=== PATIENT | female | born 1950 | race Caucasian/White ===

== ENCOUNTER 2017-12-31 11:14 | Inpatient (IN) ==
--- NOTE | 2017-12-31 11:40 | Emergency Department Report ---
Medical Clearance HPI - General Chief complaint: Medical Clearance Stated complaint: Eval Time Seen by Provider: 12/31/17 11:40 Allergies/Adverse reactions: Allergies Allergy/AdvReac Type Severity Reaction Status Date / Time No Known Allergies Allergy Verified 12/31/17 11:39 PFS Patient Stated Medical History Diabetes Mellitus Type 2 Yes Depression Yes - Social History Smoking status: Current every day smoker
--- OUTSIDE RECORDS SUMMARY | 2017-12-31 12:27 | External Medical Summary | Continuity of Care Document ---
:1950 Author Organization [facility] Care Team Providers Name Role Phone [facility] Admission Diagnosis Code Admission Diagnosis Date [id number] Acute upper respiratory infection Social History Element Code Description Smoking Start Date End Date Description Status Code System Smoking Status [id number] Current some day SNOMED-CT smoker Problems Code Code System Problem Name Start Date End Date Status CAT BITE-LEFT 03/05/2016 Active INDEX FINGER Medications RxNorm Medication Dose Route Instructions Indications Start End Status Date Date Calcium with Active Vit. D ASA 81 mg Active Fish Oil Daily Active Ginko Biloba Active Lopressor 50 mg Daily Active Lotrel /20 Daily Active Metformin 500 mg Daily Active MVI Daily Active [id number] Simvastatin 80 oral orally every Active 80 MG Oral milligram day Tablet Tricor 54 mg 1/2 QOD Active tab Simvastin 80 mg QOD No Longer Active Allergies No Known Allergies Results Laboratory Results Order: CBC With Automated DifferentialLegend: D=Delta, H=High, L=Low, HH=Critical High, LL=Critical Low, AA=Critical Alpha-Numeric, C=Corrected, A=Abnormal LOINC Test Result Flag Range Units Date 90-2 6.7 4.5-11.0 10^3/mm3 09/24/2017 1WBC # Bld 09:40 Auto 85872-9 4.04 4.00-5.20 10^6/mm3 09/24/2017 1Retics # 09:40 Auto 29856-6 12.7 12.0-16.0 g/dl 09/24/2017 1Hgb 09:40 BldV-mCnc 4544-3 37.8 36.0-46.0 % 09/24/2017 1Hct VFr Bld 09:40 Auto 787-2 93.6 82.0-100.0 10^6/mm3 09/24/2017 1MCV RBC Auto 09:40 785-6 31.4 27.0-34.0 pg 09/24/2017 1MCH RBC Qn 09:40 Auto 786-4 33.6 32.0-36.0 g/dl 09/24/2017 1MCHC RBC 09:40 Auto-mCnc 788-0 13.6 11.7-15.0 % 09/24/2017 1RDW RBC 09:40 Auto-Rto 777-3 317 150-450 10^3/mm3 09/24/2017 1Platelet # 09:40 Bld Auto 10514-2 9.7 7.4-10.4 09/24/2017 1PMV Bld 09:40 54533-4 70.9 40.0-74.0 % 09/24/2017 1Neutrophils 09:40 # CSF 20.6 14.0-46.0 % 09/24/2017 1LYMPH% 09:40 59885-7 7.1 4.0-13.0 % 09/24/2017 1CD43 Ag Tiss 09:40 Ql ImStn 711-2 0.6 0.0-4.0 % 09/24/2017 1Eosinophil # 09:40 Bld Auto 704-7 0.8 <=3.0 % 09/24/2017 1Basophils # 09:40 Bld Auto 751-8 4.7 1.8-7.8 09/24/2017 1Neutrophils 09:40 # Bld Auto 07352-6 1.4 0.7-4.5 09/24/2017 1Lymphocytes 09:40 # Bld 99983-2 0.5 0.1-1.0 09/24/2017 1CD43 Ag Tiss 09:40 Ql ImStn 711-2 0.04 <=4.00 09/24/2017 1Eosinophil # 09:40 Bld Auto 704-7 0.05 <=0.20 09/24/2017 1Basophils # 09:40 Bld Auto N 09/24/2017 1MANDIFF 09:40 84947-4 N 09/24/2017 1RBC Bld Auto 09:40 Performing Lab Footnotes:1[facility] - [id number] - [address] [facility] [place] [address] - [place] Order: Comprehensive Metabolic PanelLegend: D=Delta, H=High, L=Low, HH= Critical High, LL=Critical Low, AA=Critical Alpha-Numeric, C=Corrected, A= Abnormal LOINC Test Result Flag Range Units Date 5- 119 H 70-105 mg/dl 09/24/2017 1Glucose 09:40 [facility] 3094-0 14 7-25 mg/dl 09/24/2017 1BUN 09:40 [facility] 2160-0 1.1 0.6-1.3 mg/dl 09/24/2017 1Creat 09:40 [facility]-2 13 13-39 09/24/2017 1Creat/Urea 09:40 nit SerPl 2951-2 137 135-145 mmol/L 09/24/2017 1Sodium 09:40 [facility] 07476-8 4.1 3.5-5.1 mmol/L 09/24/2017 1Potassium 09:40 [facility] 2075-0 100 98-107 mmol/l 09/24/2017 1Chloride 09:40 [facility] 2028-9 25 21-31 mmol/l 09/24/2017 1CO2 09:40 [facility] 31323-8 16 9-16 mmol/L 09/24/2017 1Anion Gap 09:40 [facility] 2692-2 286 277-298 mOsm/kg 09/24/2017 1Osmolality 09:40 SerPl 91891-7 9.9 8.2-10.0 mg/dl 09/24/2017 1Calcium 09:40 [facility] 1742-6 43 7-52 IU/L 09/24/2017 1ALT 09:40 SerPl-cCnc 1920-8 53 H 13-39 IU/L 09/24/2017 1AST 09:40 SerPl-cCnc 1715-2 56 34-104 U/L 09/24/2017 1ACP 09:40 SerPl-cCnc 1975-2 0.7 0.3-1.0 mg/dl 09/24/2017 1Bilirub 09:40 SerPl-mCnc 2885-2 7.7 6.0-8.3 g/dL 09/24/2017 1Prot 09:40 SerPl-mCnc 1751-7 4.3 3.5-5.7 g/dl 09/24/2017 1Albumin 09:40 SerPl-mCnc 2336-6 3.4 H 2.3-3.2 g/dL 09/24/2017 1Globulin 09:40 Ser-mCnc 1759-0 1.3 1.2-2.0 09/24/2017 1Albumin/Flaca 09:40 b SerPl 49 L 60-116 GFRunits 09/24/2017 1GFR 09:40 Performing Lab Footnotes:[address] [place] [address] - [id number] - [address] [place] [address] [facility] [place] Radiology Results Order: CXR2VW Chest x-ray 2 viewsExam Completion Date:09/24/2017 10:02INDICATION: Acute upper respiratory infectionChest x-ray 2 views: Comparison: None The heart size isnormal. The pulmonary vasculature is not engorged. Thelungs are clear. There is no evidence of pleural effusion.IMPRESSION: No acute radiographic abnormality.Released By TERESA BRANNON, MDDate: 09/24/2017 10:45 Vital Signs No data in the system Plan of Care No data in the system Procedures No data in the system Encounters Date Code Diagnosis Status (ICD10) - J069 ACUTE UP RESPIRATORY INFECTION Active UNS Immunizations No data in the system Functional Status No data in the system Hospital Discharge Instructions No data in the system
--- OUTSIDE RECORDS SUMMARY | 2017-12-31 12:28 | External Medical Summary ---
:1950 Author Name ANGÉLICA RUST MD Address [address] Unavailable [place], [place] [id number] Care Team Providers Name Role Phone ANGÉLICA RUST MD Unavailable Unavailable SRINIVASAN MCGUIRE Unavailable Unavailable DR. Eleni GRANDA Unavailable Unavailable ALESSANDRO GALDAMEZ Unavailable Unavailable DR. TAJ AMARAL Unavailable Unavailable LIN RENEE APRN Unavailable Unavailable Allergies and Adverse Reactions No Known Allergies Chief Complaint Medications Encounters Provider(s) Location(s) Date ANGÉLICA RUST MD [facility] 12/11/2017 12:04 PM CARE Immunizations Vaccine Date Status PCV-13 PREVNAR 10/25/2015 Completed PPSV23 - Private 02/05/2017 Completed Medications Medication Strength Directions Start End Status Fill Date Date Instructions Vitamin D3 1,000 unit 10/25/2015 Active 1 Capsule 1 time per day calcium 600 mg 10/25/2015 Active 1 tab per day multivitamin 10/25/2015 Active 1 tab per day Fosamax 70 mg Active take 1 7 tablet by Oral route in am at least 30 min before food or drink 1 time per week ID [id number] Bevespi 9-4.8 mcg 09/01/20 Active Aerosphere 2 Puffs 2 17 times per day sample ProAir HFA 90 09/09/20 Active ug/actuatio inhale 2 17 n puff by Inhalation route every 4-6 hours PRN Tylenol Extra 500 mg Active Strength take 1 8 tablet by Oral route 1 time per day as needed *couple times a month* albuterol sulfate 2.5 mg /3 Active mL (0.083 inhale 3 8 %) milliliters by NEBULIZATION route every 4 hours PRN J44.9 & RO6.02 aspirin 81 mg Active 1 Tablet 8 by Oral route 1 time per day atorvastatin 40 mg Active take 1 8 tablet by Oral route 1 time per day ID [id number] donepezil 10 mg Active take 1 8 tablet (10 mg) by oral route once daily in the evening metFORMIN 500 mg 11/26/2017 Active Replaces other 1 Tablet 1 order for time per day Metformin that with evening was costly. meal Our e-scribe has a lot of choices for this med. -dp benazepril 40 mg 11/28/2017 Active This replaces 1 Tablet 1 amoldipine/irma time per day zapril combo fenofibrate 160 mg 11/28/2017 Active take 1 tablet (160 mg) by oral route once daily amLODIPine 10 mg 11/28/2017 Active This replaces 1 Tablet 1 amlodipine/irma time per day zapril combo metoprolol 50 mg 11/28/2017 Active Medication succinate take 1 updated from tablet by Oral ERx info from route 1 time pharmacy. per day escitalopram 20 mg Active note stoppping oxalate take 1 8 mirtazepine tablet by Oral route 1 time per day metformin 500 mg 10/25/2015 10/18/19 Completed 0.5 Tablet 17 by Oral route 1 time per day at bedtime Ultram 50 mg 07/01/20 02/18/20 Completed take 1 16 17 tablet by Oral route every 4-6 hours as needed PRN metoprolol 50 mg 01/11/20 Completed succinate take 1 6 17 tablet (50 mg) by oral route once daily amlodipine-benaze 10-20 mg 09/06/20 Completed pril take 1 16 7 capsule by Oral route 2 times per day triamcinolone 0.5 % Completed acetonide apply a 7 017 thin layer to the affected area(s) by topical route 2 times per day metFORMIN 500 mg 04/11/20 Completed 0.5 Tablet 7 17 by Oral route 1 time per day at bedtime - NOT TAKING mirtazapine 15 mg 11/17/19 Completed take 0.5-1 7 18 tablet by Oral route before bedtime 1 time per day ID [id number] amlodipine-benaze 10-20 mg 06/09/20 Completed Medication pril take 1 7 17 updated from capsule by Oral ERx info from route 2 times pharmacy. per day ID [id number] Medrol (Abelardo) 4 mg 09/01/20 11/06/19 Completed take as 17 18 directed by Oral route every 6 days donepezil 09/01/20 Completed by oral 17 017 route 10 mg once dailiy azithromycin 250 mg 09/01/20 11/12/19 Completed take 2 17 18 tablets by Oral route 1 time per day then 1 tablet (250 mg) once daily for 4 days metFORMIN 500 mg Completed take 1 8 8 tablets by Oral route 1 time per day with meals with evening meal metFORMIN 500 mg 11/26/2017 Completed 1 Tablet 1 8 time per day Metformin ER 500 mg. atorvastatin 40 mg 10/25/2015 03/20/20 Suspended take 1 17 tablet (40 mg) by oral route once daily aspirin 81 mg 10/25/2015 11/17/19 Suspended 1 tab per 18 day Tylenol Extra 500 mg 10/25/2015 11/17/19 Suspended Strength take 1 18 tablet by Oral route 1 time per day as needed metoprolol 50 mg 10/25/2015 08/27/20 Suspended succinate take 1 16 tablet (50 mg) by oral route once daily Fosamax 70 mg 10/25/2015 01/02/20 Suspended take 1 16 tablet (70 mg) by oral route once weekly in the morning, at least 30 min before first food, beverage, or medication of day amlodipine-benaze 5-10 mg 10/25/2015 12/20/19 Suspended pril take 1 16 capsule by oral route once daily fenofibrate 160 mg 10/25/2015 11/15/19 Suspended take 1 16 tablet (160 mg) by oral route once daily fenofibrate 160 mg 03/11/20 Suspended take 1 6 17 tablet (160 mg) by oral route once daily amlodipine-benaze 10-20 mg Suspended pril take 1 6 016 capsule by Oral route 1 time per day Fosamax 70 mg 02/13/20 Suspended take 1 6 17 tablet (70 mg) by oral route once weekly in the morning, at least 30 min before first food, beverage, or medication of day Fosamax 70 mg 01/02/20 Suspended take 1 6 16 tablet (70 mg) by oral route once weekly in the morning, at least 30 min before first food, beverage, or medication of day Fosamax 70 mg 01/02/20 Suspended take 1 6 16 tablet (70 mg) by oral route once weekly in the morning, at least 30 min before first food, beverage, or medication of day predniSONE 20 mg 07/01/20 Suspended take 2 16 016 tablet by Oral route 1 time per day for 5 days then take one table daily for 5 days amlodipine-benaze 10-20 mg 07/17/20 Suspended pril take 1 16 016 capsule by Oral route 1 time per day amlodipine-benaze 10-20 mg 07/17/20 Suspended pril take 1 16 016 capsule by Oral route 1 time per day NEW DOSE amlodipine-benaze 10-20 mg 09/06/20 Suspended pril take 1 16 016 capsule by Oral route 1 time per day NEW DOSE metFORMIN 500 mg 03/20/20 Suspended 0.5 Tablet 7 17 by Oral route 1 time per day at bedtime amlodipine-benaze 10-20 mg 12/23/2016 06/04/20 Suspended Medication pril TAKE ONE 17 updated from CAPSULE BY ERx info from MOUTH TWICE pharmacy. DAILY metoprolol 50 mg 06/10/20 Suspended Medication succinate TAKE ONE 7 17 updated from TABLET BY MOUTH ERx info from ONCE DAILY pharmacy. escitalopram 10 mg 03/21/20 Suspended oxalate take 1 7 17 tablet (10 mg) by oral route once daily Fosamax 70 mg 06/04/20 Suspended take 1 7 17 tablet in the morning, at least 30 min before first food, beverage, or medication of day 1 time per week fenofibrate 160 mg 06/10/20 Suspended take 1 7 17 tablet (160 mg) by oral route once daily mirtazapine 15 mg 06/04/20 Suspended take 0.5-1 7 17 tablet by Oral route before bedtime 1 time per day atorvastatin 40 mg 05/21/20 Suspended take 1 7 17 tablet (40 mg) by oral route once daily escitalopram 20 mg 06/10/20 Suspended oxalate take 1 7 17 tablet by Oral route 1 time per day atorvastatin 40 mg 06/04/20 Suspended take 1 7 17 tablet (40 mg) by oral route once daily atorvastatin 40 mg 11/17/19 Suspended take 1 7 18 tablet by Oral route 1 time per day ID [id number] benazepril 40 mg Suspended This replaces 1 Tablet 1 7 8 amoldipine/irma time per day zapril combo fenofibrate 160 mg Suspended take 1 7 8 tablet (160 mg) by oral route once daily escitalopram 20 mg 11/17/19 Suspended oxalate take 1 7 18 tablet by Oral route 1 time per day metoprolol 50 mg Suspended Medication succinate take 1 7 8 updated from tablet by Oral ERx info from route 1 time pharmacy. per day amLODIPine 10 mg Suspended This replaces 1 Tablet 1 7 8 amlodipine/irma time per day zapril combo NEBULIZER AND NEB 09/09/20 Suspended KITS for 1 017 LIFETIME dx: COPD J44.9 albuterol sulfate 2.5 mg /3 09/09/20 10/10/19 Suspended mL (0.083 inhale 3 17 18 %) milliliters by NEBULIZATION route every 4 hours PRN NEBULIZER AND NEB 09/11/20 Suspended KITS for 1 017 LIFETIME dx: COPD J44.9 albuterol sulfate 2.5 mg /3 11/17/19 Suspended mL (0.083 inhale 3 8 18 %) milliliters by NEBULIZATION route every 4 hours PRN J44.9 & RO6.02 escitalopram 20 mg 11/17/19 Suspended oxalate take 2 8 18 tablet by Oral route 1 time per day dose increase metFORMIN 500 mg 11/17/19 Suspended take 1 8 18 tablets by Oral route 1 time per day with meals Tylenol Extra 500 mg 11/17/19 Suspended Strength take 1 8 18 tablet by Oral route 1 time per day as needed *couple times a month* escitalopram 20 mg Suspended note stoppping oxalate take 2 8 8 mirtazepine tablet by Oral route 1 time per day dose increase escitalopram 20 mg 11/28/2017 12/12/19 Suspended note stoppping oxalate take 2 18 mirtazepine tablet by Oral route 1 time per day dose increase Payers Plan Name Date MEDICARE [employer] 09/22/2015 MEDICARE PART B Treatment plan Planned Care Start Date 3 month follow up. CBE 02/23/2018 Social History History Item Description Date Sex Female Current Smoking Status Unknown Since 12/11/2017 Tobacco Use Unknown Since 11/26/2017 Tobacco Use Former Smoker 11/17/2017 - 11/26/2017 Tobacco Use Unknown 09/11/2017 - 11/17/2017 Tobacco Use Current some day smoker 09/01/2017 - 09/11/2017 Tobacco Use Unknown 06/10/2017 - 09/01/2017 Tobacco Use Current every day smoker 06/05/2017 - 06/10/2017 Tobacco Use Unknown 05/08/2017 - 06/05/2017 Tobacco Use Current every day smoker 04/29/2017 - 05/08/2017 Tobacco Use Unknown 04/15/2017 - 04/29/2017 Tobacco Use Current every day smoker 04/11/2017 - 04/15/2017 Tobacco Use Unknown 03/21/2017 - 04/11/2017 Tobacco Use Current every day smoker 03/20/2017 - 03/21/2017 Tobacco Use Unknown 02/12/2017 - 03/20/2017 Tobacco Use Current every day smoker 02/05/2017 - 02/12/2017 Tobacco Use Unknown 07/17/2016 - 02/05/2017 Tobacco Use Current Smoker 06/12/2016 - 07/17/2016 Tobacco Use Unknown 12/28/2015 - 06/12/2016 Tobacco Use Current every day smoker 12/20/2015 - 12/28/2015 Tobacco Use Unknown 11/05/2015 - 12/20/2015 Tobacco Use Current every day smoker 10/25/2015 - 11/05/2015
--- OUTSIDE RECORDS SUMMARY | 2017-12-31 12:28 | External Medical Summary | Continuity of Care Document ---
:1950 Author Organization [facility] Care Team Providers Name Role Phone HERIBERTO WINTERS Admitting Physician Unavailable HERIBERTO WINTERS Attending Physician Unavailable ANGÉLICA RUST Primary Care Physician Hospital Admission Diagnosis Code Admission Diagnosis Date [id number] Bite - wound Social History Element Code Description Smoking Start Date End Date Description Status Code System Smoking Status [id number] Heavy tobacco SNOMED-CT smoker Problems Code Code System Problem Name Start Date End Date Status CAT BITE-LEFT 03/05/2016 Active INDEX FINGER Medications RxNorm Medication Dose Route Instructions Indications Start End Status Date Date Calcium with Active Vit. D ASA 81 mg Active Fish Oil Daily Active Ginko Biloba Active Lopressor 50 mg Daily Active Lotrel 5/20 Daily Active Metformin 500 mg Daily Active MVI Daily Active Simvastin 80 mg QOD Active Tricor 54 mg QOD Active 1/2 tab Allergies No Known Allergies Results No data in the system Vital Signs Vitals Value Date Body Temperature 97.9 F 03/09/2016 Respiratory Rate 18 03/09/2016 O2% BldC Oximetry 98 03/09/2016 BP Systolic 137 mmHg 03/09/2016 BP Diastolic 59 mmHg 03/09/2016 Height 64 in 03/09/2016 Weight Measured 116.8 lbs 03/09/2016 BSA (Body Surface Area) 1.59006 03/09/2016 BMI (Body Mass Index) 20.1 03/09/2016 Plan of Care No data in the system Procedures No data in the system Encounters Date Code Diagnosis Status (ICD10) - B39207K OPEN BITE LT IF NO DMG NAIL Active INITIAL Immunizations No data in the system Functional Status No data in the system Hospital Discharge Instructions No data in the system
--- OUTSIDE RECORDS SUMMARY | 2017-12-31 12:28 | External Medical Summary | Continuity of Care Document ---
:1950 Author Name BARRERA RUEL Address [address] [place] [address] Care Team Providers Name Role Phone SHADY CAVAZOS Unavailable RUEL VANG Unavailable MAKENZIENISH SRINIVASAN Mei Unavailable RUEL VANG Primary Careprovider Unavailable Problems Problem Name Type ICD Code ICD Version Date Status Provider AGE-RELATED Diagnosis R41.81 10 04/11/2017 Active Ruel Vang COGNITIVE DECLINE PRIMARY INSOMNIA Diagnosis F51.01 10 04/11/2017 Active Ruel Vang OTHER MALAISE Diagnosis R53.81 10 04/11/2017 Active Ruel Vang MAJOR DEPRESSIVE Diagnosis F33.9 10 03/20/2017 Active Ruel Vang DISORDER, RECURRENT, UNSPECIFIED ABNORMAL WEIGHT Diagnosis R63.4 10 10/25/2015 Active Ruel Vang LOSS Medications Medication Sig Dispense Refill Date Started Provider amLODIPine 10 mg 1 Tablet 1 90 Tablet 1 06/10/2017 RUEL tablet time per day BARRERA benazepril 40 mg 1 Tablet 1 90 Tablet 1 06/10/2017 RUEL tablet time per day BARRERA escitalopram take 1 tablet 90 Tablet 1 06/10/2017 RUEL oxalate 20 mg by Oral route BARRERA tablet 1 time per day fenofibrate 160 mg take 1 tablet 90 Tablet 1 06/10/2017 RUEL tablet (160 mg) by BARRERA oral route once daily metoprolol take 1 tablet 90 Tablet 1 06/10/2017 RUEL succinate 50 mg by Oral route BARRERA tablet extended 1 time per day release 24 hr atorvastatin 40 mg take 1 tablet 90 Tablet 3 06/04/2017 RUEL tablet by Oral route BARRERA 1 time per day ID [id number] Fosamax 70 mg take 1 tablet 12 tablet 3 06/04/2017 RUEL tablet by Oral route BARRERA in am at least 30 min before food or drink 1 time per week ID [id number] mirtazapine 15 mg take 0.5-1 30 tab(s) 5 06/04/2017 RUEL tablet tablet by Oral BARRERA route before bedtime 1 time per day ID [id number] triamcinolone apply a thin 30 Gram 0 02/05/2017 RUEL acetonide 0.5 % layer to the BARRERA ointment affected area(s) by topical route 2 times per day Vitamin D3 1,000 1 Capsule 1 10/25/2015 RUEL unit capsule time per day BARRERA aspirin 81 mg 1 tab per day Unknown Outside tablet, Provider effervescent calcium 600 mg 1 tab per day Unknown Outside Provider multivitamin 1 tab per day Unknown Outside Provider Tylenol Extra take 1 tablet Unknown Outside Strength 500 mg by Oral route Provider tablet 1 time per day as needed Allergies No known allergies for patient. Encounters Date Diagnosis Provider Location Telephone 04/11/2017 ABNORMAL WEIGHT LOSS RUEL VANG [facility] 10:36 AM CDT MAJOR DEPRESSIVE DISORDER, RECURRENT, UNSPECIFIED FAMILY [facility] OTH SYMPTOMS AND SIGNS W COGNITIVE FUNCTIONS AND AWARENESS [facility], [address] [facility], OTHER [facility] [id number] Procedures Procedures not documented for patient. Medications Administered Medications Administered not documented for patient. Immunizations Immunizations not documented for patient. Chief Complaint and Reason for Visit Date Reason for Visit Chief Complaint 04/11/2017 Appt- 4 week follow up Results Order Result Date Test Result Range CBC W/AUTO DIFF WBC 04/12/2017 Result Comments: Results within Expected Range see b12 jose WBC 8.6 X10E3/UL 3.4-10.8 RBC 4.09 X10E6/UL 3.77-5.28 Hemoglobin 12.9 G/DL 11.1-15.9 Hematocrit 38.1 % 34.0-46.6 MCV 93 FL 79-97 MCH 31.5 PG 26.6-33.0 MCHC 33.9 G/DL 31.5-35.7 RDW 13.3 % 12.3-15.4 Platelets 334 X10E3/UL 150-379 Neutrophils 61 % Lymphs 31 % Monocytes 5 % Eos 2 % Basos 1 % Neutrophils 5.2 X10E3/UL 1.4-7.0 (Absolute) Lymphs (Absolute) 2.7 X10E3/UL 0.7-3.1 Monocytes(Absolute) 0.4 X10E3/UL 0.1-0.9 Eos (Absolute) 0.2 X10E3/UL 0.0-0.4 Baso (Absolute) 0.1 X10E3/UL 0.0-0.2 Immature 0 % Granulocytes Immature Grans (Abs) 0.0 X10E3/UL 0.0-0.1 TSH THYROID 04/12/2017 Result Comments: Results within STIMULATING HORMONE Expected Range see b12 jose TSH 1.690 UIU/ML 0.450-4.500 B 12 04/12/2017 Result Comments: call pt her lab isac esparzaiona a lower B12 I rec she start b12 2500mcg sublingula christianne Recheck b12 in 6 omnths jose Vitamin B12 451 PG/ML 211-946 CMP (IN HOUSE) 04/11/2017 Result Comments: Results within Expected Range see b12 jose SODIUM 140 mmol/24hours 128 - 145 POTASSIUM 4.8 mmol/L 3.60 - 5.1 CARBON DIOXIDE 25 mmol/L 18 - 33 CHLORIDE 103 mmol/L 98 - 108 GLUCOSE BLOOD TEST 79 mg/dL 73 - 118 CALCIUM, TOTAL 9.5 mg/dL 8.0 - 10.30 BUN 11 mg/dL 7 - 22 CREATININE 0.7 mg/dL 0.6 - 1.2 BUN/Creatinine Ratio 15.7 mg/l 8 - 27 ALP ALKALINE 52 IU/L 42 - 141 PHOSPHATASE ALANINE AMINO (ALT) 17 IU/L 10 - 47 (SGPT) TRANSFERASE (AST) 30 IU/L 11 - 38 (SGOT) BILIRUBIN, TOTAL 0.6 mg/dL 0.2 - 1.6 ALBUMIN 3.7 mg/dL 3.3 - 5.5 PROTEIN 6.6 g/dL 6.4 - 8.1 eGFR 60 mL/min/1.73 59 - Vital Signs Vital Sign Date Value BP Systolic 04/11/2017 114 mm[Hg] BP Diastolic 04/11/2017 58 mm[Hg] BMI (Body Mass Index) 04/11/2017 20.4 kg/m2 Heart Rate 04/11/2017 51 /min Height 04/11/2017 63 in Weight 04/11/2017 115.2 pounds Body Temperature 04/11/2017 96.8 F Respiratory Rate 04/11/2017 16 bpm Functional Status Functional Status not documented for patient. Social History Social History Element Description Date Smoking Current every day smoker 04/11/2017 Instructions Instructions not documented for patient. Plan of Care Goals and Instructions Goals and Instructions not documented for patient. Future Appointments and Referrals: Name Type Date RUEL VANG MD: [facility] Future Appointment 08/06/2017 9:40 AM [facility]; [address] [place] [address]; ; Reason for Visit: Follow-up Future Tests and Procedures: Name Type Date CAROTID DOPPLER Scheduled Procedure 02/02/2018 A1C (IN HOUSE) Scheduled Lab 09/22/2017
--- OUTSIDE RECORDS SUMMARY | 2017-12-31 12:28 | External Medical Summary | Continuity of Care Document ---
:1950 Author Name BARRERA RUEL Address [address] [place] [address] Care Team Providers Name Role Phone SHADY CAVAZOS Unavailable RUEL VANG Unavailable MAKENZIENISH SRINIVASAN Mei Unavailable RUEL VANG Primary Careprovider Unavailable Problems One or more Problems items have been excluded by the author. Problem Name Type ICD Code ICD Version Date Status Provider DEMENTIA IN OTHER Diagnosis F02.80 10 06/05/2017 Active Ruel Vang DISEASES CLASSIFIED ELSEWHERE WITHOUT BEHAVIORAL DISTURBANCE NICOTINE Diagnosis F17.218 10 04/29/2017 Active Ruel Vang DEPENDENCE, CIGARETTES, W OTH DISORDERS OCCLUSION AND Diagnosis I65.22 10 02/05/2017 Active Ruel Vang STENOSIS OF LEFT CAROTID ARTERY ESSENTIAL Diagnosis I10 10 12/20/2015 Active Ruel Vang (PRIMARY) HYPERTENSION Medications Medication Sig Dispense Refill Date Started [...] route BARRERA 1 time per day ID [id number] Fosamax 70 mg take 1 tablet 12 tablet 3 06/04/2017 RUEL tablet by Oral route BARRERA in am at least 30 min before food or drink 1 time per week ID [id number] mirtazapine 15 mg take 0.5-1 30 tab(s) 5 06/04/2017 RUEL tablet tablet by Oral BARRERA route before bedtime 1 time per day ID [id number] triamcinolone apply a thin 30 Gram 0 [...] Allergies No known allergies for patient. Encounters One or more Encounters items have been excluded by the author. Date Diagnosis Provider Location Telephone 06/05/2017 ESSENTIAL (PRIMARY) HYPERTENSION RUEL VANG [facility] 10:44 AM CDT OCCLUSION AND STENOSIS OF LEFT CAROTID ARTERY [facility] NICOTINE DEPENDENCE, CIGARETTES, W OT DISORDERS [facility], [address] DEMENTIA IN OTHER DISEASES CLASSIFIED ELSEWHERE WITHOUT BEHAVIORAL [place] [address] Procedures Procedures not documented for patient. Medications Administered Medications Administered not documented for patient. Immunizations Immunizations not documented for patient. Chief Complaint and Reason for Visit Date Reason for Visit Chief Complaint 06/05/2017 Appt: Follow UP Results Order Result Date Test Result Range URINALYSIS W06/06/2017 Result Comments: SL your urine MICRO IF POS mocriscopic exam had only 2 rbc noted I recommend no change but a repeat urine test in 6 months jose WBC Esterase TRACE NEGATIVE Microscopic SEE BELOW: Examination Specific [place] 1.012 1.005-1.030 pH 7.0 5.0-7.5 Urine-Color YELLOW YELLOW Appearance CLEAR CLEAR Protein NEGATIVE NEGATIVE/TRACE Glucose NEGATIVE NEGATIVE Ketones NEGATIVE NEGATIVE Occult Blood NEGATIVE NEGATIVE Bilirubin NEGATIVE NEGATIVE Urobilinogen,Semi-Qn 1.0 MG/DL 0.2-1.0 Nitrite, Urine NEGATIVE NEGATIVE WBC 0-5 /HPF 0 - 5 RBC 0-2 /HPF 0 - 2 Epithelial Cells 0-10 /HPF 0 - 10 (non renal) Bacteria NONE SEEN NONE SEEN/FEW A1C (IN HOUSE) 06/05/2017 Result Comments: Results within Expected Range disc care with sweets note wnat her to maintian wt disc at appt jose A1C (IN HOUSE) 6.0 mg/g 4.8 - 5.6 URINALYSIS DIP 06/05/2017 Result Comments: disc blood at appt STICK (IN HOUSE) snde for microscopic no sx jose Glucose 0 mg/dL 0 - 0 Specific [place] 1.015 mg/l 1.001 - 1.035 pH 7.0 mg/l 4.6 - 8.0 Urobilinogen 1.0 units/L 0.2 - 1.0 Bilirubin Negative Ketone negative Blood small Protein negative Nitrite Negative Leukocytes trace Vital Signs Vital Sign Date Value BP Systolic 06/05/2017 144 mm[Hg] BP Diastolic 06/05/2017 69 mm[Hg] Heart Rate 06/05/2017 58 /min Weight 06/05/2017 124.2 pounds Body Temperature 06/05/2017 98.1 F Respiratory Rate 06/05/2017 16 bpm Functional Status Functional Status not documented for patient. Social History Social History Element Description Date Smoking Current every day smoker 06/05/2017 Instructions Instructions not documented for patient. Plan of Care Goals and Instructions Goals and Instructions not documented for patient. Future Appointments and Referrals: Name Type Date RUEL VANG MD: HEART OF Future Appointment 08/06/2017 9:40 AM [facility]; [address] [place] [address]; ; Reason for Visit: Follow-up Future Tests and Procedures: Name Type Date CAROTID DOPPLER Scheduled Procedure 02/02/2018 A1C (IN HOUSE) Scheduled Lab 09/22/2017
--- OUTSIDE RECORDS SUMMARY | 2017-12-31 12:28 | External Medical Summary | Continuity of Care Document ---
:1950 Author Name BARRERA RUEL Address [address] [place] [address] Care Team Providers Name Role Phone SHADY CAVAZOS Unavailable RUEL VANG Unavailable MAKENZIEROGE MOCKRANDELL Mei Unavailable RUEL VANG Primary Careprovider Unavailable [...] route BARRERA 1 time per day ID [id number] Fosamax 70 mg take 1 tablet 12 tablet 3 06/04/2017 RUEL tablet by Oral route BARRERA in am at least 30 min before food or drink 1 time per week ID [id number] mirtazapine 15 mg take 0.5-1 30 tab(s) 5 06/04/2017 RUEL tablet tablet by Oral BARRERA route before bedtime 1 time per day ID [id number] triamcinolone apply a thin 30 Gram 0 [...] Telephone 06/05/2017 ESSENTIAL (PRIMARY) HYPERTENSION RUEL VANG [facility] ( [phone] 10:44 AM CDT OCCLUSION AND STENOSIS OF LEFT CAROTID ARTERY [facility] NICOTINE DEPENDENCE, CIGARETTES, W OT DISORDERS [facility], [address] DEMENTIA IN OTHER DISEASES CLASSIFIED ELSEWHERE [place] [address] Procedures Procedures not documented for patient. Medications [...] TRACE NEGATIVE Microscopic SEE BELOW: Examination Specific [place] 1.012 1.005-1.030 pH 7.0 5.0-7.5 Urine-Color YELLOW [...] Glucose 0 mg/dL 0 - 0 Specific [place] 1.015 mg/l 1.001 - 1.035 pH 7.0 [...] HEART OF Future Appointment 08/06/2017 9:40 AM [facility]; [address] [place] [address]; ; Reason for Visit: Follow-up Future Tests and Procedures: Name Type Date CAROTID DOPPLER Scheduled Procedure 02/02/2018 A1C (IN HOUSE) Scheduled Lab 09/22/2017
--- OUTSIDE RECORDS SUMMARY | 2017-12-31 12:28 | External Medical Summary | Continuity of Care Document ---
:1950 Author Organization [facility] Care Team Providers Name Role Phone Julissa ESPARZA Admitting Physician Julissa ESPARZA Attending Physician ANGÉLICA RUST Primary Care Physician Hospital Admission Diagnosis Code Admission Diagnosis Date [id number] Contusion of knee Social History Element Code Description Smoking Start Date End Date Description Status Code System Smoking Status [id number] Heavy tobacco SNOMED-CT smoker Problems Code Code [...] 500 mg Daily Active MVI Daily Active 36295 Simvastatin 80 Oral orally every Active milligram day Tricor 54 mg 1/2 QOD Active tab Simvastin 80 mg QOD No Longer Active Allergies No Known Allergies Results No data in the system Vital Signs Vitals Value Date Body Temperature 97.8 F 06/29/2016 Respiratory Rate 16 06/29/2016 O2% BldC Oximetry 99 06/29/2016 BP Systolic 119 mmHg 06/29/2016 BP Diastolic 84 mmHg 06/29/2016 Height 65 in 06/29/2016 Weight Measured 50 lbs 06/29/2016 BSA (Body Surface Area) 1.65871 06/29/2016 BMI (Body Mass Index) 8.3 06/29/2016 Plan of Care No data in the system Procedures No data in the system Encounters Date Code Diagnosis Status (ICD10) - [id number] CONTUSION LEFT KNEE INITIAL ENC Active Immunizations No data in the system Functional Status No data in the system Hospital Discharge Instructions No data in the system
--- OUTSIDE RECORDS SUMMARY | 2017-12-31 12:28 | External Medical Summary | Continuity of Care Document ---
:1950 Author Organization [facility] Care Team Providers Name Role Phone Julissa ESPARZA Admitting Physician Julissa ESPARZA Attending Physician ANGÉLICA RUST Primary Care Physician Hospital Admission Diagnosis No data in the System Social History Element Code Description Smoking Start Date End Date Description Status Code System Smoking Status [id number] Heavy tobacco SNOMED-CT smoker Problems Code Code [...] 500 mg Daily Active MVI Daily Active 40146 Simvastatin 80 Oral orally every Active milligram [...] 50 lbs 06/29/2016 BSA (Body Surface Area) 1.47936 06/29/2016 BMI (Body Mass Index) 8.3 06/29/2016 Plan of Care No data in the system Procedures No data in the system Encounters No data in the system Immunizations No data in the system Functional Status No data in the system Hospital Discharge Instructions No data in the system
--- OUTSIDE RECORDS SUMMARY | 2017-12-31 12:28 | External Medical Summary | Continuity of Care Document ---
:1950 Author Organization [facility] Care Team Providers Name Role Phone [facility] Admitting Physician MELANIE NARVAEZ Attending Physician Hospital Admission Diagnosis No data in the System Social History Element Code Description Smoking Start Date End Date Description Status Code System Smoking Status [id number] Current some day SNOMED-CT smoker Problems Code [...] LOINC Test Result Flag Range Units Date 6689-2 6.7 4.5-11.0 10^3/mm3 09/24/2017 1WBC # Bld 09:40 Auto 14134-2 4.04 4.00-5.20 10^6/mm3 09/24/2017 1Retics # 09:40 Auto 87955-2 12.7 12.0-16.0 g/dl 09/24/2017 1Hgb 09:40 BldV-mCnc [...] 10^3/mm3 09/24/2017 1Platelet # 09:40 Bld Auto 26465-3 9.7 7.4-10.4 09/24/2017 1PMV Bld 09:40 00972-6 70.9 40.0-74.0 % 09/24/2017 1Neutrophils 09:40 # CSF 20.6 14.0-46.0 % 09/24/2017 1LYMPH% 09:40 38597-3 7.1 4.0-13.0 % 09/24/2017 1CD43 Ag Tiss 09:40 Ql ImStn 711-2 0.6 0.0-4.0 % 09/24/2017 1Eosinophil # 09:40 Bld Auto 704-7 0.8 <=3.0 % 09/24/2017 1Basophils # 09:40 Bld Auto 751-8 4.7 1.8-7.8 09/24/2017 1Neutrophils 09:40 # Bld Auto 21662-1 1.4 0.7-4.5 09/24/2017 1Lymphocytes 09:40 # Bld 71262-1 0.5 0.1-1.0 09/24/2017 1CD43 Ag Tiss 09:40 Ql ImStn 711-2 0.04 <=4.00 09/24/2017 1Eosinophil # 09:40 Bld Auto 704-7 0.05 <=0.20 09/24/2017 1Basophils # 09:40 Bld Auto N 09/24/2017 1MANDIFF 09:40 20628-8 N 09/24/2017 1RBC Bld Auto 09:40 Performing Lab Footnotes:[id number] [address] [facility] [place] [address] - [place] Order: Comprehensive Metabolic PanelLegend: D=Delta, H=High, L=Low, HH= Critical High, LL=Critical Low, AA=Critical Alpha-Numeric, C=Corrected, A= Abnormal LOINC Test Result Flag Range Units Date 2345-7 119 H 70-105 mg/dl 09/24/2017 1Glucose 09:40 SerPl-[facility] 3094-0 14 7-25 mg/dl 09/24/2017 1BUN 09:40 SerPl-[facility] 2160-0 1.1 0.6-1.3 mg/dl 09/24/2017 1Creat 09:40 SerPl-[facility] 28751-5 13 13-39 09/24/2017 1Creat/Urea 09:40 nit SerPl 2951-2 137 135-145 mmol/L 09/24/2017 1Sodium 09:40 SerPl-[facility] 57208-1 4.1 3.5-5.1 mmol/L 09/24/2017 1Potassium 09:40 SerPl-[facility] 2075-0 100 98-107 mmol/l 09/24/2017 1Chloride 09:40 SerPl-[facility] 2028-9 25 21-31 mmol/l 09/24/2017 1CO2 09:40 SerPl-[facility] 03088-3 16 9-16 mmol/L 09/24/2017 1Anion Gap 09:40 SerPl-[facility] 2692-2 286 277-298 mOsm/kg 09/24/2017 1Osmolality 09:40 SerPl 17082-5 9.9 8.2-10.0 mg/dl 09/24/2017 1Calcium 09:40 SerPl-[facility] 1742-6 43 7-52 IU/L 09/24/2017 1ALT 09:40 [...] 60-116 GFRunits 09/24/2017 1GFR 09:40 Performing Lab Footnotes:[address] [place] [address] - [id number] - [address] [place] [id number] [facility] [place] Radiology Results Order: CXR2VW Chest [...]
--- NOTE | 2017-12-31 12:29 | XRay Report ---
EXAM: XR chest 1V HISTORY: generations clearance COMPARISON: No available studies for comparison. FINDINGS: The cardiomediastinal silhouette is normal. The mediastinum is not widened. The trachea is midline. The pulmonary vascularity is not engorged. The lung edwards are clear and the costophrenic angles are sharp. The bony thorax shows early degenerative changes. IMPRESSION: No acute cardiopulmonary process is identified. .
--- OUTSIDE RECORDS SUMMARY | 2017-12-31 12:30 | External Medical Summary | Continuity of Care Document ---
:1950 Author Organization [facility] Allergies Active Description Code Type Severity Reaction Onset Reported/ Identified Relationship Clinical to Patient Status Yes No known ##NOM Drug N/A N/A allergies EN##, AL1,c eStru ct,al lergy ,8619 26,26 7917 Yes No Known 48757 Unknown N/A 06/01/2009 Allergies 8 Yes No Known Drug Unknown N/A 06/23/2017 Drug Allergy Aller gy Yes No Known Drug Unknown N/A 06/23/2017 Drug Aller Category gy Allergy Yes No Known Envir Unknown N/A 06/23/2017 Environment onmen Allergy isabella Aller gy Yes No Known Food Unknown N/A 06/23/2017 Food Allergy Aller gy Medications Medication Packaging Start Date Stop Date Route Dosage Sig Gram 06/23/2017 0.5 % triamcinolone 1 (one) by acetonide 0.5 % Topical topical ointment route two times per day Tablet 06/23/2017 50 mg metoprolol take 1 (one) succinate ER 50 mg by Oral tablet,extended route daily release 24 hr Vitamin Capsule 06/23/2017 1,000 unit D3 1,000 unit 1 (one) capsule Tablet by Oral route daily Tablet 06/23/2017 160 mg fenofibrate 160 mg take 1 (one) tablet Tablet by Oral route daily Tablet 06/23/2017 15 mg mirtazapine 15 mg take 1 (one) tablet Tablet by Oral route at bedtime Blister 06/23/2017 20 mg escitalopram 20 mg take 1 (one) tablet Tablet by Oral route daily Blister 06/23/2017 40 mg benazepril 40 mg take 1 (one) tablet Tablet by Oral route daily Blister 06/23/2017 40 mg atorvastatin 40 mg take 1 (one) tablet Tablet by Oral route daily Blister 06/23/2017 10 mg amLODIPine 10 mg take 1 (one) tablet Tablet by Oral route daily Fosamax Blister 06/23/2017 70 mg 70 mg tablet take 1 (one) Tablet by Oral route every week in the morning Problems Date Dx Attending Type Code Diagnosis Diagnosed By Coded 12/20/2015 ANGÉLICA RUST MD I10 ESSENTIAL (PRIMARY) HYPERTENSION 12/20/2015 ANGÉLICA RUST MD R05 COUGH 12/20/2015 ANGÉLICA RUST MD R92.8 OTH ABN AND INCONCLUSIVE FINDINGS ON DX IMAGING OF BREAST 04/08/2016 Rui WINTERS L08.9 LOCAL INFECTION OF HERIBERTO THE SKIN AND SUBCUTANEOUS TISSUE, UNSPECIFIED 04/08/2016 Lashawn WINTERS S61.251A OPEN BITE OF LEFT HERIBERTO INDEX FINGER WITHOUT DAMAGE TO NAIL, INITIAL ENCOUNTER 04/08/2016 Rui WINTERS W55.01XA BITTEN BY CAT, HERIBERTO INITIAL ENCOUNTER 04/08/2016 Rui WINTERS Y92.89 OTHER SPECIFIED HERIBERTO PLACES THE PLACE OF OCCURRENCE OF THE EXTERNAL CAUSE 06/12/2016 ANGÉLICA RUST MD E11.9 TYPE 2 DIABETES MELLITUS WITHOUT COMPLICATIONS 06/12/2016 ANGÉLICA RUST MD M17.0 BILATERAL PRIMARY OSTEOARTHRITIS OF KNEE 06/12/2016 ANGÉLICA RUST MD M22.42 CHONDROMALACIA PATELLAE, LEFT KNEE 06/12/2016 ANGÉLICA RUST MD M25.562 PAIN IN LEFT KNEE 07/01/2016 RUDDY SAHNI, M17.0 BILATERAL PRIMARY SRINIVASAN R OSTEOARTHRITIS OF KNEE 07/01/2016 RUDDY SAHNI, M25.562 PAIN IN LEFT KNEE SRINIVASAN R 07/04/2016 Julissa ESPARZA F17.210 NICOTINE DEPENDENCE, CIGARETTES, UNCOMPLICATED 07/04/2016 Julissa ESPARZA P S80.02XA CONTUSION OF LEFT KNEE, INITIAL ENCOUNTER 07/04/2016 Julissa ESPARZA S X50.1XXA OVEREXERTION FROM PROLONGED STATIC OR AWKWARD POSTURES, INITIAL ENCOUNTER 07/04/2016 Julissa ESPARZA S Y92.017 GARDEN OR YARD IN SINGLE-FAMILY (PRIVATE) HOUSE THE PLACE OF OCCURRENCE OF THE EXTERNAL CAUSE 07/16/2016 ANGÉLICA RUST MD M25.462 EFFUSION, LEFT KNEE 07/16/2016 ANGÉLICA RUST MD M25.562 PAIN IN LEFT KNEE 07/16/2016 ANGÉLICA RUST MD M25.462 EFFUSION, LEFT KNEE 07/16/2016 ANGÉLICA RUST MD M25.562 PAIN IN LEFT KNEE 08/20/2016 F M23.332 Other meniscus derangements, other medial meniscus, left knee 02/05/2017 ANGÉLICA RUST MD E11.9 TYPE 2 DIABETES MELLITUS WITHOUT COMPLICATIONS 02/05/2017 ANGÉLICA RUST MD 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4 ABNORMAL WEIGHT LOSS 04/11/2017 ANGÉLICA RUST MD F33.9 MAJOR DEPRESSIVE DISORDER, RECURRENT, UNSPECIFIED 04/11/2017 ANGÉLICA RUST MD F51.01 PRIMARY INSOMNIA 04/11/2017 ANGÉLICA RUST MD R41.89 OTH SYMPTOMS AND SIGNS W COGNITIVE FUNCTIONS AND AWARENESS 04/11/2017 ANGÉLICA RUST MD R53.81 OTHER MALAISE 04/11/2017 ANGÉLICA RUST MD R63.4 ABNORMAL WEIGHT LOSS 04/29/2017 ANGÉLICA RUST MD E78.2 MIXED HYPERLIPIDEMIA 04/29/2017 ANGÉLICA RUST MD F17.218 NICOTINE DEPENDENCE, CIGARETTES, W OTH DISORDERS 04/29/2017 ANGÉLICA RUST MD I10 ESSENTIAL (PRIMARY) HYPERTENSION 04/29/2017 ANGÉLICA RUST MD M54.2 CERVICALGIA 04/29/2017 ANGÉLICA RUST MD R41.81 AGE-RELATED COGNITIVE DECLINE 04/29/2017 ANGÉLICA RUST MD R63.4 ABNORMAL WEIGHT LOSS 04/29/2017 ANGÉLICA RUST MD E78.2 MIXED HYPERLIPIDEMIA 04/29/2017 ANGÉLICA RUST MD F17.218 NICOTINE DEPENDENCE, CIGARETTES, W OTH DISORDERS 04/29/2017 ANGÉLICA RUST MD I10 ESSENTIAL (PRIMARY) HYPERTENSION 04/29/2017 ANGÉLICA RUST MD M54.2 CERVICALGIA 04/29/2017 ANGÉLICA RUST MD R41.81 AGE-RELATED COGNITIVE DECLINE 04/29/2017 ANGÉLICA RUST MD R63.4 ABNORMAL WEIGHT LOSS 06/05/2017 ANGÉLICA RUST MD E11.9 TYPE 2 DIABETES MELLITUS WITHOUT COMPLICATIONS 06/05/2017 ANGÉLICA RUST MD F02.80 DEMENTIA IN OTH DISEASES CLASSD ELSWHR W/O BEHAVRL DISTURB 06/05/2017 ANGÉLICA RUST MD F17.218 NICOTINE DEPENDENCE, CIGARETTES, W OTH DISORDERS 06/05/2017 ANGÉLICA RUST MD I10 ESSENTIAL (PRIMARY) HYPERTENSION 06/05/2017 ANGÉLICA RUST MD I65.22 OCCLUSION AND STENOSIS OF LEFT CAROTID ARTERY 07/07/2017 Moy BRENNAN, I65.23 Occlusion and Barber Winter MD D stenosis of Barber D bilateral carotid arteries 07/13/2017 BARBER WINTER P I65.23 OCCLUSION AND BARBER WINTER STENOSIS OF BILATERAL CAROTID ARTERIES 07/16/2017 Moy BRENNAN, I65.23 Occlusion and Barber Winter MD D stenosis of Barber D bilateral carotid arteries 09/01/2017 ANGÉLICA RUST MD J20.9 ACUTE BRONCHITIS, UNSPECIFIED 09/01/2017 VÍCTOR WHELAN, J20.9 ACUTE BRONCHITIS, LIN C UNSPECIFIED 09/09/2017 VÍCTOR WHELAN, J44.9 CHRONIC OBSTRUCTIVE LIN C PULMONARY DISEASE, UNSPECIFIED 09/09/2017 VÍCTOR WHELAN, R06.02 SHORTNESS OF BREATH LIN C 09/12/2017 VÍCTOR WHELAN, F33.9 MAJOR DEPRESSIVE LIN C DISORDER, RECURRENT, UNSPECIFIED 09/12/2017 VÍCTOR WHELAN, J44.9 CHRONIC OBSTRUCTIVE LIN C PULMONARY DISEASE, UNSPECIFIED 09/30/2017 SOLANGE P J06.9 ACUTE UPPER VALENTINO-[facility]AT[facility] orden VANNORDEN INFECTION, UNSPECIFIED 10/22/2017 ANGÉLICA RUST MD J44.9 CHRONIC OBSTRUCTIVE PULMONARY DISEASE, UNSPECIFIED 10/22/2017 ANGÉLICA RUST MD R41.81 AGE-RELATED COGNITIVE DECLINE 10/22/2017 ANGÉLICA RUST MD J44.9 CHRONIC OBSTRUCTIVE PULMONARY DISEASE, UNSPECIFIED 10/22/2017 ANGÉLICA RUST MD R41.81 AGE-RELATED COGNITIVE DECLINE 11/17/2017 ANGÉLICA RUST MD E11.65 TYPE 2 DIABETES MELLITUS WITH HYPERGLYCEMIA 11/17/2017 ANGÉLICA RUST MD F33.9 MAJOR DEPRESSIVE DISORDER, RECURRENT, UNSPECIFIED 11/17/2017 ANGÉLICA RUST MD I10 ESSENTIAL (PRIMARY) HYPERTENSION 11/17/2017 ANGÉLICA RUST MD R41.81 AGE-RELATED COGNITIVE DECLINE Procedures Code Description [place] [address] A1C ([place] 10/25/2015 [place]) 33904 CMP (IN 10/25/2015 [place]) 92421 LIPID PANEL 10/25/2015 (IN HOUSE) 99490 CHEST X-RAY 10/25/2015 2-VIEW 47269 X-RAY EXAM 10/25/2015 OF HIPS COMPLETE WITH AP PELVIS 17873 MAMMOGRAM, 10/25/2015 SCREENING 35888 DXA BONE 10/25/2015 DENSITY, AXIAL 14893 CAROTID 10/25/2015 DOPPLER 08036 VITAMIN D, 10/27/2015 25 HYDROXY 49782 TSH THYROID 10/27/2015 STIMULATING HORMONE 29927 CAROTID 11/02/2015 DOPPLER 31090 X-RAY EXAM 11/02/2015 OF HIPS COMPLETE WITH AP PELVIS 24173 CHEST X-RAY 11/02/2015 2-VIEW 73167 DXA BONE 11/02/2015 DENSITY, AXIAL 32989 A1C (IN 06/12/2016 [place]) 67610 MICROALBUMIN 06/12/2016 IN HOUSE 18296 X-RAY EXAM, 06/12/2016 KNEE, 4 OR MORE J1885 KETOROLAC 07/01/2016 INJ 60MG ORTHOPEDI Eleni GRANDA 07/16/2016 13983 ASHLY GRANDA 08/20/2016 INJECTION/ASPIRATION, JOINT/BURSA, ANÍBAL 47588 Knee SUNRISE ASHLY GRANDA 08/20/2016 1 VIEW 61091 Knee WB 1 ASHLY GRANDA T 08/20/2016 VIEW J1040 Depo-Medrol ASHLY GRANDA 08/20/2016 80 MG INJ 82279 A1C (IN 02/05/2017 HOUSE) 04387 A1C (IN 02/05/2017 HOUSE) 32401 MAMMOGRAM, 02/06/2017 SCREENING 18127 DXA BONE 02/06/2017 DENSITY, AXIAL 78905 CAROTID 02/06/2017 DOPPLER 25792 MAMMOGRAM, 02/06/2017 SCREENING 64489 CAROTID 02/06/2017 DOPPLER 72658 CMP (IN 04/11/2017 [place]) NEUROLOGY [place], 04/11/2017 ALESSANDRO 97115 B 12 04/12/2017 45483 TSH THYROID 04/12/2017 STIMULATING HORMONE 49793 CBC W/AUTO 04/12/2017 DIFF WBC 57513 LIPID PANEL 04/29/2017 (IN HOUSE) 92421 CMP (IN 04/29/2017 [place]) 14881 CT SFT TSUE 04/29/2017 NCK W/O & W/DYE 82690 CT CHEST W/O 04/29/2017 & W/DYE 56327 CT ABD/PELV 04/29/2017 W/ & W/O CONTRAST MEDICAL O FESEN, TAJ 04/29/2017 13504 SED RATE, 04/30/2017 ESR, AUTOMATED 15319 URINALYSIS 06/05/2017 DIP STICK (IN HOUSE) 93990 A1C (IN 06/05/2017 [place]) 36888 URINALYSIS 06/06/2017 W/ MICRO IF POS VASCULAR VASCULAR 06/08/2017 SURGEON, PROVIDER 84936 Duplex scan Barber Winter MD 07/15/2017 of extracranial arteries; complete bilateral study 02070 Office or Barber Winter MD 08/05/2017 other outpatient visit for the evaluation and management [place] [address] Duplex scan Barber Winter MD 08/19/2017 of extracranial arteries; complete bilateral study 91668 CBC W/AUTO 09/09/2017 DIFF WBC 58112 CHEST X-RAY 09/09/2017 2-VIEW 35370 A1C (IN 11/17/2017 [place]) Results Test Result Range CBC With Differential/Platelet - 04/11/17 13:47 WBC 8.6 x10E3/uL 3.4-10.8 RBC 4.09 x10E6/uL 3.77-5.28 Hemoglobin 12.9 g/dL 11.1-15.9 Hematocrit 38.1 % 34.0-46.6 MCV 93 fL 79-97 MCH 31.5 pg 26.6-33.0 MCHC 33.9 g/dL 31.5-35.7 RDW 13.3 % 12.3-15.4 Platelets 334 x10E3/uL 150-379 Neutrophils 61 % Lymphs 31 % Monocytes 5 % Eos 2 % Basos 1 % Neutrophils (Absolute) 5.2 x10E3/uL 1.4-7.0 Lymphs (Absolute) 2.7 x10E3/uL 0.7-3.1 Monocytes(Absolute) 0.4 x10E3/uL 0.1-0.9 Eos (Absolute) 0.2 x10E3/uL 0.0-0.4 Baso (Absolute) 0.1 x10E3/uL 0.0-0.2 Immature Granulocytes 0 % Immature Grans (Abs) 0.0 x10E3/uL 0.0-0.1 TSH - 04/11/17 13:47 TSH 1.690 uIU/mL 0.450-4.500 Vitamin B12 - 04/11/17 13:47 Vitamin B12 451 pg/mL 211-946 Sedimentation Rate-Westergren - 04/29/17 14:04 Sedimentation Rate-[facility] 8 mm/hr 0-40 PADDY and PE, Serum - 05/28/17 18:14 Protein, Total, Serum 6.7 g/dL 6.0-8.5 Immunoglobulin G, Qn, Serum 577 mg/dL 700-1600 Immunoglobulin A, Qn, Serum 174 mg/dL 87-352 Immunoglobulin M, Qn, Serum 56 mg/dL 26-217 Albumin 3.9 g/dL 2.9-4.4 Rotan-4-Wvzxosrj 0.2 g/dL 0.0-0.4 Oyduj-6-Siyzpxbx 0.8 g/dL 0.4-1.0 Beta Globulin 1.2 g/dL 0.7-1.3 Gamma Globulin 0.6 g/dL 0.4-1.8 M-Ag Not Observed g/dL Not Observed Globulin, Total 2.8 g/dL 2.2-3.9 A/G Ratio 1.4 0.7-1.7 Immunofixation Result, Serum Comment Please note: Comment Free K+L Lt Chains,Qn,S - 05/28/17 18:14 Free [place] Lt Chains,S 17.6 mg/L 3.3-19.4 Free Lambda Lt Chains,S 15.4 mg/L 5.7-26.3 [place]/Lambda Ratio,S 1.14 0.26-1.65 Methylmalonic Acid, Serum - 05/28/17 18:14 Methylmalonic Acid, Serum 178 nmol/L 0-378 Homocyst(e)ine, Plasma - 05/28/17 18:14 Homocyst(e)ine, Plasma 14.2 umol/L 0.0-15.0 Histoplasma Gal'maureen Ag Ur - 05/28/17 18:29 Histoplasma Gal'maureen Ag Ur 0.19 ng/mL 0.00-0.49 Histoplasma Gal'maureen Ag Ser - 05/28/17 18:30 Histoplasma Gal'maureen Ag Ser 0.13 ng/mL 0.00-0.49 Porphyrins, Qn, 24 Hr Ur. - 05/30/17 08:28 Uroporphyrins (UP) 2 ug/L Undefined Uroporph(UP),24hr 6 ug/24 hr 0-24 Heptacarboxyl (7-CP) 1 ug/L Undefined Heptacab(7-CP),24hr 3 ug/24 hr 0-4 Hexacarboxyl (6-CP) <1 ug/L Undefined Hexacarb(6-CP),24hr <3 ug/24 hr 0-1 Pentacarboxyl (5-CP) <1 ug/L Undefined Pentacarb(5-CP),24hr <3 ug/24 hr 0-4 Coproporphyrin (CP) I 6 ug/L Undefined Coproporph(CP)I,24hr 17 ug/24 hr 0-24 Coproporphyrin (CP) III 19 ug/L Undefined Copropor(CP)III,24hr 55 ug/24 hr 0-74 ALA Delta, 24-Hour Urine - 05/30/17 08:28 Delta ALA 0.9 mg/L Undefined Delta ALA 2.6 mg/24 hr 0.5-5.1 PBG Deaminase, Erythrocytes - 05/30/17 08:28 PBG Deaminase RBC 4.52 mU/g Hb 2.10-4.30 HCV RNA ZAFAR Qualitative - 06/05/17 13:14 HCV RNA ZAFAR Qualitative Negative Negative SONOGRAM CAROTID - 07/03/17 09:51 Document View Attached Image NRG Encounters ACCT No. Visit Discharge Status Pt. Type Provider Facility Loc./Unit Complaint Date/Time [id number] 12/21/2015 12/21/2015 CLS Out[facility] 05 10:22:00 23:59:59 t MD [facility] [id number] 11/02/2015 11/02/2015 DIS Outpatien [facility]. 66 09:32:00 23:59:00 t MD [facility] [id number] 06/08/2017 Document 35 06:35:00 Registrat ion [id number] 06/02/2017 Document 06 17:06:00 Registrat ion [id number] 08/17/2017 08/17/2017 CLS Outpatien Moy 01 06:57:19 23:59:59 t Barber BRENNAN [id number] 06/02/2017 Document 06 17:06:00 Registrat ion [id number] 04/30/2017 Document 12 08:12:00 Registrat ion [id number] 04/12/2017 Document 06 09:06:00 Registrat ion [id number] 12/16/2017 12/16/2017 CLS Preadmit Neetu Kahn CLAR Greta CE 10:15:57 23:59:59 Aaron Shipman [facility] [id number] 12/16/2017 12/16/2017 DIS Outpatien Neetu Bain CBSS - 09:15:42 23:59:59 t Amrita Car [facility] [id number] 12/02/2017 12/02/2017 CLS Outpatien Neetu CBSS - 16:16:50 23:59:59 t [facility] [id number] 08/20/2016 Document 0 00:00:00 Registrat ion [id number] 11/17/2017 11/17/2017 CLS Outpatien BARRERA 16:01:00 23:59:59 t ANGÉLICA BRENNAN [id number] 11/17/2017 11/17/2017 CLS Outpatien BARRERA 16:01:00 23:59:59 t ANGÉLICA BRENNAN [id number] 10/22/2017 10/22/2017 CLS Outpatien BARRERA 16:49:00 23:59:59 t ANGÉLICA BRENNAN [id number] 09/12/2017 09/12/2017 CLS Outpatien FANSHIER 10:37:00 23:59:59 t LIN WHELAN [id number] 09/09/2017 09/09/2017 CLS Outpatien FANSHIER 09:08:00 23:59:59 t LIN WHELAN [id number] 09/01/2017 09/01/2017 CLS Outpatien BARRERA 09:55:00 23:59:59 t ANGÉLICA BRENNAN [id number] 06/05/2017 06/05/2017 CLS Outpatien BARRERA 10:44:00 23:59:59 t ANGÉLICA BRENNAN [id number] 06/05/2017 06/05/2017 CLS Outpatien BARRERA 10:44:00 23:59:59 t ANGÉLICA BRENNAN [id number] 04/29/2017 04/29/2017 CLS Outpatien BARRERA 09:26:00 23:59:59 t ANGÉLICA BRENNAN [id number] 04/11/2017 04/11/2017 CLS Outpatien BARRERA 10:36:00 23:59:59 t ANGÉLICA BRENNAN [id number] 03/20/2017 03/20/2017 CLS Outpatien BARRERA 11:04:00 23:59:59 t ANGÉLICA BRENNAN [id number] 02/05/2017 02/05/2017 CLS Outpatien BARRERA 14:17:00 23:59:59 t ANGÉLICA BRENNAN [id number] 02/05/2017 02/05/2017 CLS Outpatien BARRERA 14:17:00 23:59:59 t ANGÉLICA BRENNAN [id number] 07/16/2016 07/16/2016 CLS Outpatien BARRERA 14:47:00 23:59:59 t ANGÉLICA BRENNAN [id number] 07/01/2016 07/01/2016 CLS Outpatien OELGER 10:58:00 23:59:59 t SRINIVASAN SAHNI [id number] 06/12/2016 06/12/2016 CLS Outpatien BARRERA 10:21:00 23:59:59 t ANGÉLICA BRENNAN [id number] 12/20/2015 12/20/2015 CLS Outpatien BARRERA 09:46:00 23:59:59 t ANGÉLICA BRENNAN [id number] 10/25/2015 10/25/2015 CLS Outpatien BARRERA 10:05:00 23:59:59 ANGÉLICA guzman MD [id number] 09/24/2017 ACT Unknown SOLANGE, 09:25:00 [facility] ~mvanncarolinae n [place]IPPR[place] [id number] 06/29/2016 ACT Unknown Julissa ESPARZA NSER LOWER 09:08:00 [place] [facility] KNEE [id number] 03/09/2016 ACT Unknown CRUZ [place] NSER BITE - CAT 09:58:00 PAMELA [facility] [id number] Document 00:09:24 Registrat ion [id number] 06/06/2017 Document 07 13:07:00 Registrat ion [id number] 06/02/2017 Document 06 18:06:00 Registrat ion [id number] 06/20/2017 06/20/2017 DIS Outpatien MOY [place] US CAROTID 10:42:00 10:42:00 [facility] ST[facility], [facility]
[2017-12-31] MEDS ORDERED: HALOPERIDOL 0.5 MG TABLET PO PRN (13:11)
[2017-12-31] MEDS ORDERED: LORazepam 0.5 MG TABLET PO PRN (13:11)
[2017-12-31] MEDS ORDERED: HALOPERIDOL 5 MG/ML INJECTION IM PRN (13:11)
[2017-12-31] MEDS ORDERED: ALBUTEROL 2.5mg/3ml (0.083%) NEB AEROSOL PRN (13:13)
[2017-12-31] MEDS ORDERED: ACETAMINOPHEN 500 MG TABLET PO PRN (13:13)
[2017-12-31] MEDS ORDERED: LORazepam INTENSOL 1mg/0.5ml ORAL LIQUID PO PRN (14:38)
--- NOTE | 2017-12-31 16:36 | History & Physical Report ---
History of Present Illness Date: 12/31/17 Chief complaint: Dementia with behavioral disturbance HPI: Kayleigh Miramontes is a 67-year-old female patient of Dr. Ruel Vang in [place], who presented to [facility] ED today, 12/31/17, for psychiatric evaluation. Family reports that she was diagnosed with vascular dementia in 2017 and started on Aricept by Dr. Romano about 6 months ago. Since beginning the Aricept, family feels that her memory has improved slightly but she continues to decline with regard to functional abilities. Family reports that she is fiercely independent and is still trying to maintain her independence by living alone. Only recently did she stop driving. Family also reports that she has not been taking her home medications as directed for her hypertension, COPD, diabetes or depression. Due to her self care deficit, medication non-compliance and dementia with depression, she was accepted to [facility] unit on 12/31/17. Initial evaluation in the ED revealed mild hypokalemia (K 3.5) and hyperglycemia (Glu 218). LFTs were also slightly elevated with AST 38 and ALT 37. She denies any history of alcohol use. TSH was elevated at 12.50 with no known history of thyroid issues. The hospitalist service was consulted for medical management. Kayleigh is seen shortly after her admission. Initially she is noted to be pacing around the halls and was later redirected to her room. She denies any complaints or concerns including no recent illness, fevers, chills, chest pain, shortness of breath, abdominal pain, nausea, vomiting or dysuria. She is very upset that her daughter brought her here and rationalizes her occasional forgetfulness as "old age". Prior medical records were reviewed including recent note from Dr. Vang on 12/30/17 which noted that her diet has become very poor, including sugary foods and lots of soda. At that exam, she was noted to have an elevated A1c at 7.2. It was also noted that at that exam, she was not walking because she didn't want to, not because she was unable. Review of Systems All systems PM: 10-point ROS was reviewed, no additional remarkable complaints except Review of systems: Limited due to patient's dementia. - Constitutional Constitutional: Absent: chills, fatigue, fever(s), headache(s), malaise, weakness - EENMT Eyes: Absent: blurry vision, change in vision, diplopia, loss of vision, photophobia Ears: Absent: ear pain Balance: Absent: falling to one side Nose: Absent: nosebleeds Mouth/Throat: Absent: sore throat, changes in swallowing - Cardiovascular Cardiovascular: Absent: chest pain, palpitations, syncope, dyspnea on exertion, edema Rhythm: Present: regular rhythm Vascular: Absent: pallor of an extermity, pedal edema, unilateral swelling - Respiratory Respiratory: Absent: cough, dyspnea, dyspnea on exertion, wheezing - Gastrointestinal Gastrointestinal: Absent: abdominal pain, diarrhea, melena, nausea, vomiting - Genitourinary Genitourinary: Absent: dysuria, flank pain, hematuria Menstruation: post hysterectomy - Musculoskeletal Musculoskeletal: Absent: back pain, deformity, limited range of motion, muscle weakness - Integumentary/Breasts Integumentary: Absent: rash - Neurological Neurological: Present: memory loss. Absent: abnormal gait, convulsions, dizziness, focal weakness, weakness - Psychiatric Psychiatric: Present: anxiety, depression - Endocrine Endocrine: Absent: flushing, palpitations - Hematologic/Lymphatic Hematologic/Lymphatic: Absent: easy bruising - Allergic/Immunologic Allergic/Immunologic: Absent: seasonal rhinorrhea Past Medical History Medical History Updates: Hypertension. COPD. Hyperlipidemia. Osteopenia. Diabetes Mellitus, type 2. Carotid stenosis. Depression. Senile tremor. Claustrophobia. Dementia. Tobacco dependence. Surgical History: Hysterectomy - 1989. Cholecystectomy - 1955. Colonscopy - (polyps). Carotid Doppler - 01/2017 (report unavailable, though stenosis reported by PCP). Family History Updates: Mother - , 40, [place], CAD, HTN, CKD, thyroid disease, lung cancer. Father - , 82, CAD, thyroid disease, diabetes, dementia. Brother - diabetes. Sister - alive and reportedly healthy. Maternal grandfather - , alcohol abuse. Family History: As Above - Social History Smoking status: Current every day smoker Packs per day: 0.5 Substance use type: does not use Alcohol intake frequency: does not drink Housing: house Household members: none service: No Current occupational status: retired (disabled services) Does patient use chewing tobacco?: No Current residence: Apartment/Private Home Social history: PCP - Dr. Vang. Neuro - Dr. Mallonee. Medications Home Medications Medication Instructions Recorded Confirmed Type Acetaminophen [Pain Reliever] 500 mg PO DAILY PRN 12/31/17 12/31/17 History Albuterol Neb (0.083%) [Proventil 2.5 mg AEROSOL Q4H PRN 12/31/17 12/31/17 History Neb (0.083%)] Albuterol Sulfate [Proair Hfa] 2 puff INH Q4-6HR PRN 12/31/17 12/31/17 History Alendronate Sodium [Alendronate 70 mg PO Q7D 12/31/17 12/31/17 History Sodium] Amlodipine [Norvasc] 10 mg PO DAILY 12/31/17 12/31/17 History Aspirin [Aspirin EC] 81 mg PO DAILY 12/31/17 12/31/17 History Atorvastatin [Lipitor] 40 mg PO HS 12/31/17 12/31/17 History Benazepril HCl [Benazepril HCl] 40 mg PO DAILY 12/31/17 12/31/17 History Calcium Carbonate 600 mg PO DAILY 12/31/17 12/31/17 History Cholecalciferol (Vitamin D3) 1,000 unit PO DAILY 12/31/17 12/31/17 History [Vitamin D3] Donepezil [Aricept] 10 mg PO DAILY 12/31/17 12/31/17 History Escitalopram [Lexapro] 40 mg PO DAILY 12/31/17 12/31/17 History Fenofibrate [Lofibra] 160 mg PO DAILY 12/31/17 12/31/17 History Glycopyrrolate/Formoterol Fum 2 puff INH BID 12/31/17 12/31/17 History [Bevespi Aerosphere Inhaler] Metformin XR [Glucophage Xr] 500 mg PO DAILY 12/31/17 12/31/17 History Metoprolol Succinate [Toprol Xl] 50 mg PO DAILY 12/31/17 12/31/17 History Multivitamin [One Daily] 1 each PO DAILY 12/31/17 12/31/17 History Allergies Allergy/AdvReac Type Severity Reaction Status Date / Time No Known Allergies Allergy Verified 12/31/17 11:39 Exam Vital Signs: Temperature 97.8 F 12/31/17 13:14 Pulse Rate 74 12/31/17 16:04 Respiratory Rate 16 12/31/17 16:04 Blood Pressure 179/72 H 12/31/17 13:14 Pulse Oximetry 97 12/31/17 16:04 Height/Weight/BMI: Weight 133 lb 13.129 oz Comments: Patient initially seen while pacing in the halls and later examined in patient' s room. - Constitutional Present: no acute distress, well nourished, well developed, disheveled, cooperative - Routine HEENT Exam Head: Present: normocephalic, atraumatic Eye: Present: PERRL. Absent: conjunctival icterus ENT: Present: mucous membranes moist, oropharynx clear - Routine Neck Exam Present: supple, full ROM, trachea midline - Routine Chest/Breast/Axilla Exam Chest wall: Absent: tenderness, pacemaker - Routine Respiratory Exam Present: CTA bilaterally. Absent: dyspnea, rales, respiratory distress, rhonchi , wheezes, crackles - Routine Cardiovascular Exam Present: RRR, S1, S2 - Routine Abdominal Exam Present: soft, normoactive bowel sounds, non distended, non tender - Routine Extremities Exam Present: no edema, non tender, full ROM, pulses intact - Routine Back/Spine/Pelvis Exam Back/Spine: Present: full ROM. Absent: vertebral tenderness - Routine Skin Exam Present: intact, dry, warm Comments: Afebrile. - Routine Neurological Exam Present: alert (orientated to person and situation.), moving all extremities, hearing grossly intact, normal speech - Routine Psychiatric Exam Present: cooperative, depressed Results - Labs CBC & Chem 7: 12/31/17 11:48 12/31/17 11:48 - Imaging and Cardiology Chest x-ray Status: image reviewed by me Additional comments: Date of Exam: 12/31/17 Type of Exam(s): XR chest 1V Reason for Exam(s): generations clearance FINDINGS: The cardiomediastinal silhouette is normal. The mediastinum is not widened. The trachea is midline. The pulmonary vascularity is not engorged. The lung edwards are clear and the costophrenic angles are sharp. The bony thorax shows early degenerative changes. IMPRESSION: No acute cardiopulmonary process is identified. Assessment and Plan (1) Dementia with behavioral disturbance Current visit: Yes Status: Acute (2) Self-care deficit in patient living alone Current visit: Yes Status: Acute Assessment and Plan: Assessment: Dementia with behavioral disturbance. Self care deficits. Hypokalemia (K 3.5), present on admission. Elevated LFTs, present on admission. Elevated TSH (12.50), present on admission. Medication noncompliance. Hypertension. COPD. Hyperlipidemia. Osteopenia. Diabetes Mellitus, type 2. Carotid stenosis. Depression. Senile tremor. Claustrophobia. Tobacco dependence. Plan - 12/31/17: Agree with admission to [facility] unit for psychiatric evaluation and cares per Dr. Higuera. Patient is a high elopement risk - monitor closely. Provide safe and supportive environment. Labs in ED revealed hypokalemia (K 3.5) and hyperglycemia (Glu 218). Will give KCl 20 mEq po x 1 dose now. Elevated LFTs - present on admission. No history of ETOH abuse. Will continue to monitor. Hold home lipitor. Monitor BGMs closely and resume home metformin XR 500mg which was started by PCP on 12/30/10. Recent A1c elevated at 7.2 though patient admits to medication noncompliance. Carb controlled diet. Hypertension - continue home Norvasc 10mg daily, Benazepril 40mg daily and metoprolol XL 50mg daily. Benazepril was recently increased to 40mg daily by PCP on 12/30/17. Monitor closely for signs of hypotension. Elevated TSH (12.50) - no known history of hypothyroidism. Will check free T3 and T4. Initiate Synthroid 25 mcg daily and recommend rechecking in 4-6 weeks. Continue home inhalers. DuoNeb Q6H PRN dyspnea. Oxygen as needed to maintain SAO2 >90%. No current oxygen use or home oxygen. Offered nicotine patch for tobacco dependence and patient refused. Will recheck labs on 01/02/18 to monitor blood counts, electrolytes and renal function. Upon discharge, patient's care will be returned to her PCP, Dr. Vang. Resuscitation Status: Do Not Resuscitate - Time spent with patient Time with patient PN: 70 minutes - Physician Narrative Physician: Susie Nj MD Narrative: Date: 12/31/17 Time: 2009 I have independently evaluated and examined this patient. I reviewed the chart, the patient's history, and the [employer]/PA's documented findings as above. We discussed and formulated the assessment and plan as above with additions as below: Mrs. Miramontes was seen earlier this evening and reported no concerns. She denied dyspnea, chest pain, nausea/diarrhea, or lightheadedness. The patient was pleasant on examination and speech was fluent EOMI, conjugate gaze, facial structure symmetric, tongue midline Respirations nonlabored, good airflow, breath sounds clear Regular cardiac rhythm Motor tone normal, no tremor evident time of my exam, electrical power engineer 4+/5, no drift to the upper extremities; proximal/distal power in the lower extremities 4/5 throughout Sensation intact to light touch 4 extremities and across all 3 distributions of the face bilaterally Laboratory data reviewed-CBC unremarkable, minor hypokalemia, trivial abnormalities in transaminases; TSH 12.5. UA negative. B-12 pending Chest x-ray reviewed by myself-NAD EKG also reviewed by myself revealing sinus rhythm with diffuse T-wave flattening but no acute abnormalities and normal waveforms. Thank you for allowing us to participate in Mrs. Miramontes's care; no additional recommendations at this time. Will monitor blood sugars/blood pressures throughout the hospital course. Hospital Course Summary Disclaimer: The visit summary below is not to be considered part of the above Progress Note. Hospital Course: Plan - 12/31/17: Agree with admission to [facility] unit for psychiatric evaluation and cares per Dr. Higuera. Patient is a high elopement risk - monitor closely. Provide safe and supportive environment. Labs in ED revealed hypokalemia (K 3.5) and hyperglycemia (Glu 218). Will give KCl 20 mEq po x 1 dose now. Elevated LFTs - present on admission. No history of ETOH abuse. Will continue to monitor. Hold home lipitor. Monitor BGMs closely and resume home metformin XR 500mg which was started by PCP on 12/30/10. Recent A1c elevated at 7.2 though patient admits to medication noncompliance. Carb controlled diet. Hypertension - continue home Norvasc 10mg daily, Benazepril 40mg daily and metoprolol XL 50mg daily. Benazepril was recently increased to 40mg daily by PCP on 12/30/17. Monitor closely for signs of hypotension. Elevated TSH (12.50) - no known history of hypothyroidism. Will check free T3 and T4. Initiate Synthroid 25 mcg daily and recommend rechecking in 4-6 weeks. Continue home inhalers. DuoNeb Q6H PRN dyspnea. Oxygen as needed to maintain SAO2 >90%. No current oxygen use or home oxygen. Offered nicotine patch for tobacco dependence and patient refused. Will recheck labs on 01/02/18 to monitor blood counts, electrolytes and renal function. Upon discharge, patient's care will be returned to her PCP, Dr. Vang.
[2017-12-31 16:37] VITALS: BMI 22.9
[2017-12-31] MEDS ORDERED: ALBUTEROL/IPRATROPIUM 2.5mg-0.5mg/3ml NEB AEROSOL PRN (16:56)
[2017-12-31] MEDS ORDERED: ATORVASTATIN 40 MG TABLET PO SCH (21:00)
[2017-12-31] MEDS: NON-FORMULARY MEDICATION 1 EACH EACH (Glycopyrrolate/Formoterol Fum [Bevespi Aerosphere In PO SCH (23:23)
[2018-01-01] MEDS: AMLODIPINE 10 MG TABLET PO SCH (08:20)
[2018-01-01] MEDS: FENOFIBRATE 160 MG TABLET PO SCH (08:20)
[2018-01-01] MEDS: LEVOTHYROXINE 25 MCG TABLET PO SCH (08:20)
[2018-01-01] MEDS: BENAZEPRIL 40 MG TABLET PO SCH (08:21)
[2018-01-01] MEDS: ESCITALOPRAM 20 MG TABLET PO SCH (08:21)
[2018-01-01] MEDS: CALCIUM CARBONATE 600 MG TABLET PO SCH (08:21)
[2018-01-01] MEDS: MULTI-VITAMIN PLAIN TABLET PO SCH (08:22)
[2018-01-01] MEDS: NON-FORMULARY MEDICATION 1 EACH EACH (Glycopyrrolate/Formoterol Fum [Bevespi Aerosphere In PO SCH (08:22)
[2018-01-01] MEDS ORDERED: DONEPEZIL 10 MG TABLET PO SCH (09:00)
[2018-01-01] MEDS ORDERED: DONEPEZIL 5 MG TABLET PO SCH (14:00)
[2018-01-01] MEDS: ASPIRIN *EC* 81 MG TABLET PO SCH (15:15)
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
[2018-01-01] MEDS: DONEPEZIL 5 MG TABLET PO SCH (20:09)
[2018-01-02] MEDS: LEVOTHYROXINE 25 MCG TABLET PO SCH (05:39)
[2018-01-02] MEDS: ESCITALOPRAM 20 MG TABLET PO SCH (08:25)
[2018-01-02] MEDS: FENOFIBRATE 160 MG TABLET PO SCH (08:26)
[2018-01-02] MEDS: ASPIRIN *EC* 81 MG TABLET PO SCH (08:26)
[2018-01-02] MEDS: MULTI-VITAMIN PLAIN TABLET PO SCH (08:26)
[2018-01-02] MEDS: CALCIUM CARBONATE 600 MG TABLET PO SCH (08:26)
[2018-01-02] MEDS: BENAZEPRIL 40 MG TABLET PO SCH (08:30)
[2018-01-02] MEDS: AMLODIPINE 10 MG TABLET PO SCH (08:30)
--- NOTE | 2018-01-02 16:35 | Neuropsych Progress Note ---
[facility] Subjective Date: 01/02/18 - Sujective/Severity of Illness Medications: Acetaminophen (Tylenol) 500 mg PO DAILY PRN PRN Reason: Pain Albuterol Sulfate (Proventil Neb (0.083%)) 2.5 mg AEROSOL Q4H PRN PRN Reason: Shortness of air Albuterol/Ipratropium (Duoneb) 3 ml AEROSOL RTQID PRN Alendronate Sodium (Fosamax) 70 mg PO Leonardo@0600 [facility] Amlodipine Besylate (Norvasc) 10 mg PO DAILY [facility] Last Admin: 01/02/18 08:30 Dose: 10 mg Aspirin (Ecotrin) 81 mg PO DAILY [facility] Last Admin: 01/02/18 08:26 Dose: 81 mg Benazepril HCl (Lotensin) 40 mg PO DAILY [facility] Last Admin: 01/02/18 08:30 Dose: 40 mg Calcium Carbonate (Caltrate) 600 mg PO DAILY [facility] Last Admin: 01/02/18 08:26 Dose: 600 mg Cholecalciferol (Vit. D-3) 1,000 unit PO DAILY [facility] Last Admin: 01/02/18 08:25 Dose: 1,000 unit Donepezil HCl (Aricept) 5 mg PO HS [facility] Last Admin: 01/01/18 20:09 Dose: 5 mg Escitalopram Oxalate (Lexapro) 40 mg PO DAILY [facility] Last Admin: 01/02/18 08:25 Dose: 40 mg Fenofibrate (Lofibra) 160 mg PO [facility] Last Admin: 01/02/18 08:26 Dose: 160 mg Haloperidol (Haldol) 0.5 mg PO Q6H PRN PRN Reason: Extreme agitation Haloperidol Lactate (Haldol) 0.5 mg IM Q6H PRN PRN Reason: Extreme agitation Levothyroxine Sodium (Synthroid) 25 mcg PO ACB [facility] Last Admin: 01/02/18 05:39 Dose: 25 mcg Lorazepam (Ativan Inj) 0.5 mg IM Q6H PRN PRN Reason: Extreme agitation Lorazepam (Ativan) 0.5 mg PO Q6H PRN PRN Reason: Extreme agitation Lorazepam (Ativan Intensol) 0.5 mg PO Q6H PRN Last Admin: 12/31/17 14:40 Dose: 0.5 mg Metformin HCl (Glucophage Xr) 500 mg PO [facility] Last Admin: 01/02/18 08:35 Dose: 500 mg Metoprolol Succinate (Toprol Xl) 50 mg PO DAILY [facility] Last Admin: 01/02/18 08:30 Dose: 50 mg Multivitamins (Theragran) 1 tab PO DAILY [facility] Last Admin: 01/02/18 08:26 Dose: 1 tab Non-Formulary Medication (Glycopyrrolate/Formoterol Fum [Bevespi Aerosphere Inhaler]) 2 puff PO BID [facility] Last Admin: 01/01/18 08:22 Dose: Not Given Subjective: Patient seen and chart reviewed. Case discussed with treatment team. Patient is in her room with grandson and dog and appears to enjoy visiting with them. Relaxed during interview but has constricted affect. Is still unhappy about hospitalization and has limited insight into safety concerns reported by family , feels they are overreacting, etc. We have broached possible placement with her and she states she will be very unhappy there but that she will not become aggressive or try to self-harm. Family has reported concern that she will try to harm herself if taken out of her home. She is aware she has dementia and it is progressive but feels she is unique in that she can live successfully by herself. Nursing staff report she isolates to room but has otherwise been pleasant/cooperative. She has been adherent with medications. Good appetite. Patient slept well overnight. VSS. No psychotropic PRNs required in past 24 hours. Agrees to LEYDI. Start Time: 12:20 Stop Time: 12:40 Mental Status Exam Vitals: Last Vital Signs Temp 97.5 F 01/02/18 16:00 Pulse 59 L 01/02/18 16:00 Resp 16 01/02/18 16:00 BP 107/60 01/02/18 16:00 Pulse Ox 97 01/02/18 16:00 Height: 1.63 m Weight: 60.7 kg - Mental Status Exam Muscle Strength/Tone: Normal Dressing: Casual Grooming: Fair Attitude: Cooperative Motor Activity: Normal Eye Contact: Good Speech: Normal Volume: Normal Rhythm: Appropriate Rhythm Orientation: Disoriented to place, Oriented to person, Oriented to time Mood: Neutral (restricted affect) Rate of Thoughts: Delayed Thought Organization: Organized, [place], Confused (at times) Associations: Intact Abstract Reasoning: Poor abstract reasoning Thought Content: Ruminations (about hospitalization; normal otherwise) Perception/Psychotic: Perception Normal Language: Naming Intact Fund of Knowledge: Poor fund of knowledge Memory: Poor-recent Suicidal Ideation: Denies Homicidal Ideation: Denies Insight: Impaired Judgement: Impaired Impulse Control: Fair - Laboratory Result Diagrams: 12/31/17 11:48 12/31/17 11:48 Laboratory Results - last 24 hr 01/01/18 01/01/18 01/02/18 17:28 20:51 05:27 Glucometer 117 157 102 Assessment and Plan (1) Major neurocognitive disorder Problem details: Vascular etiology, moderate, with behavioral disturbance Other medical problems: Hypokalemia (K 3.5), present on admission. Elevated LFTs, present on admission. Elevated TSH (12.50), present on admission. Hypertension. COPD. Hyperlipidemia. Osteopenia. Diabetes Mellitus, type 2. Carotid stenosis. Senile tremor. Current visit: Yes Status: Acute (2) Self-care deficit in patient living alone Current visit: Yes Status: Acute (3) Tobacco use disorder Current visit: Yes Status: Acute On 01/01, decreased Aricept to 5mg PO daily after discussion with family. Ordered LEYDI on 01/02; will await results and continue to observe behavior. Hospital Course Summary Disclaimer: The visit summary below is not to be considered part of the above Progress Note. Hospital Course: Plan - 12/31/17: Agree with admission to [facility] unit for psychiatric evaluation and cares per Dr. Higuera. Patient is a high elopement risk - monitor closely. Provide safe and supportive environment. Labs in ED revealed hypokalemia (K 3.5) and hyperglycemia (Glu 218). Will give KCl 20 mEq po x 1 dose now. Elevated LFTs - present on admission. No history of ETOH abuse. Will continue to monitor. Hold home lipitor. Monitor BGMs closely and resume home metformin XR 500mg which was started by PCP on 12/30/10. Recent A1c elevated at 7.2 though patient admits to medication noncompliance. Carb controlled diet. Hypertension - continue home Norvasc 10mg daily, Benazepril 40mg daily and metoprolol XL 50mg daily. Benazepril was recently increased to 40mg daily by PCP on 12/30/17. Monitor closely for signs of hypotension. Elevated TSH (12.50) - no known history of hypothyroidism. Will check free T3 and T4. Initiate Synthroid 25 mcg daily and recommend rechecking in 4-6 weeks. Continue home inhalers. DuoNeb Q6H PRN dyspnea. Oxygen as needed to maintain SAO2 >90%. No current oxygen use or home oxygen. Offered nicotine patch for tobacco dependence and patient refused. Will recheck labs on 01/02/18 to monitor blood counts, electrolytes and renal function. Upon discharge, patient's care will be returned to her PCP, Dr. Vang. On 01/01, decreased Aricept to 5mg PO daily after discussion with family. Ordered LEYDI on 01/02; will await results and continue to observe behavior.
[2018-01-02] MEDS: DONEPEZIL 5 MG TABLET PO SCH (20:56)
[2018-01-03] MEDS: NON-FORMULARY MEDICATION 1 EACH EACH (Glycopyrrolate/Formoterol Fum [Bevespi Aerosphere In PO SCH ×3 (00:17→21:03)
[2018-01-03] MEDS: LEVOTHYROXINE 25 MCG TABLET PO SCH (06:36)
[2018-01-03] MEDS: FENOFIBRATE 160 MG TABLET PO SCH (08:35)
[2018-01-03] MEDS: ASPIRIN *EC* 81 MG TABLET PO SCH (08:36)
[2018-01-03] MEDS: MULTI-VITAMIN PLAIN TABLET PO SCH (08:36)
[2018-01-03] MEDS: ESCITALOPRAM 20 MG TABLET PO SCH (08:36)
[2018-01-03] MEDS: BENAZEPRIL 40 MG TABLET PO SCH (08:36)
[2018-01-03] MEDS: CALCIUM CARBONATE 600 MG TABLET PO SCH (08:36)
[2018-01-03] MEDS: AMLODIPINE 10 MG TABLET PO SCH (08:36)
--- NOTE | 2018-01-03 11:43 | Neuropsych Progress Note ---
[facility] Subjective Date: 01/03/18 - Sujective/Severity of Illness Medications: Acetaminophen (Tylenol) 500 mg PO DAILY PRN PRN Reason: Pain Albuterol Sulfate (Proventil Neb (0.083%)) 2.5 mg AEROSOL Q4H PRN PRN Reason: Shortness of air Albuterol/Ipratropium (Duoneb) 3 ml AEROSOL RTQID PRN Alendronate Sodium (Fosamax) 70 mg PO Leonardo@0600 [facility] Amlodipine Besylate (Norvasc) 10 mg PO DAILY [facility] Last Admin: 01/03/18 08:36 Dose: 10 mg Aspirin (Ecotrin) 81 mg PO DAILY [facility] Last Admin: 01/03/18 08:36 Dose: 81 mg Benazepril HCl (Lotensin) 40 mg PO DAILY [facility] Last Admin: 01/03/18 08:36 Dose: 40 mg Calcium Carbonate (Caltrate) 600 mg PO DAILY [facility] Last Admin: 01/03/18 08:36 Dose: 600 mg Cholecalciferol (Vit. D-3) 1,000 unit PO DAILY [facility] Last Admin: 01/03/18 08:36 Dose: 1,000 unit Donepezil HCl (Aricept) 5 mg PO HS [facility] Last Admin: 01/02/18 20:56 Dose: 5 mg Escitalopram Oxalate (Lexapro) 40 mg PO DAILY [facility] Last Admin: 01/03/18 08:36 Dose: 40 mg Fenofibrate (Lofibra) 160 mg PO [facility] Last Admin: 01/03/18 08:35 Dose: 160 mg Haloperidol (Haldol) 0.5 mg PO Q6H PRN PRN Reason: Extreme agitation Haloperidol Lactate (Haldol) 0.5 mg IM Q6H PRN PRN Reason: Extreme agitation Levothyroxine Sodium (Synthroid) 25 mcg PO ACB [facility] Last Admin: 01/03/18 06:36 Dose: 25 mcg Lorazepam (Ativan Inj) 0.5 mg IM Q6H PRN PRN Reason: Extreme agitation Lorazepam (Ativan) 0.5 mg PO Q6H PRN PRN Reason: Extreme agitation Lorazepam (Ativan Intensol) 0.5 mg PO Q6H PRN Last Admin: 12/31/17 14:40 Dose: 0.5 mg Metformin HCl (Glucophage Xr) 500 mg PO [facility] Last Admin: 01/03/18 08:37 Dose: 500 mg Metoprolol Succinate (Toprol Xl) 50 mg PO DAILY [facility] Last Admin: 01/03/18 08:35 Dose: 50 mg Multivitamins (Theragran) 1 tab PO DAILY [facility] Last Admin: 01/03/18 08:36 Dose: 1 tab Non-Formulary Medication (Glycopyrrolate/Formoterol Fum [Bevespi Aerosphere Inhaler]) 2 puff PO BID [facility] Last Admin: 01/03/18 08:38 Dose: Not Given Subjective: Pt seen and chart examined. Nursing reports pt has very poor short term memory but has been pleasant and cooperative. Sleeping and eating well. On face to face the pt states she is doing well. She states she realizes she has some memory issues but feels they are mild and feels she can live on her own. She reports her mood is fairly stable. She denies any S/I. Tolerating meds Start Time: 10:30 Stop Time: 10:45 Mental Status Exam Vitals: Last Vital Signs Temp 97.2 F 01/03/18 08:00 Pulse 56 L 01/03/18 08:00 Resp 18 01/03/18 08:00 BP 147/66 H 01/03/18 08:00 Pulse Ox 98 01/03/18 08:00 Height: 1.63 m Weight: 60.7 kg - Mental Status Exam Muscle Strength/Tone: Normal Dressing: Casual Grooming: Fair Attitude: Cooperative Motor Activity: Normal Eye Contact: Good Speech: Normal Volume: Normal Rhythm: Appropriate Rhythm Orientation: Disoriented to place, Oriented to person, Oriented to time Mood: Neutral (restricted affect) Rate of Thoughts: Delayed Thought Organization: Organized, [place], Confused (at times) Associations: Intact Abstract Reasoning: Poor abstract reasoning Thought Content: Ruminations (about hospitalization; normal otherwise) Perception/Psychotic: Perception Normal Language: Naming Intact Fund of Knowledge: Poor fund of knowledge Memory: Poor-recent Suicidal Ideation: Denies Homicidal Ideation: Denies Insight: Impaired Judgement: Impaired Impulse Control: Fair - Laboratory Result Diagrams: 12/31/17 11:48 01/03/18 06:57 Laboratory Results - last 24 hr 01/02/18 01/02/18 01/03/18 05:27 16:56 01:54 Turbidity Sodium Potassium Chloride Carbon Dioxide Anion Gap BUN Creatinine GFR Calculation BUN/Creatinine Ratio Glucose Glucometer 102 126 104 Hemoglobin A1c Calculated Osmolality Calcium Total Bilirubin Icterus Index AST ALT Alkaline Phosphatase Total Protein Albumin Globulin Albumin/Globulin Ratio Triglycerides Cholesterol LDL Cholesterol, Calc VLDL Cholesterol HDL Cholesterol Cholesterol/HDL Ratio Specimen Hemolysis 01/03/18 01/03/18 01/03/18 06:43 06:57 06:57 Turbidity < 20 Sodium 144 Potassium 4.3 D Chloride 105 Carbon Dioxide 28 Anion Gap 11 BUN 15.0 Creatinine 0.8 GFR Calculation 71 BUN/Creatinine Ratio 19 Glucose 122 H Glucometer 104 Hemoglobin A1c 6.7 H Calculated Osmolality 279 Calcium 10.2 Total Bilirubin 0.40 Icterus Index < 2 AST 28 ALT 28 Alkaline Phosphatase 64 Total Protein 7.4 Albumin 4.6 Globulin 2.8 Albumin/Globulin Ratio 1.6 Triglycerides 194 H Cholesterol 214 H LDL Cholesterol, Calc 129.2 VLDL Cholesterol 38.8 H HDL Cholesterol 46 Cholesterol/HDL Ratio 4.7 H Specimen Hemolysis < 15 Assessment and Plan (1) Self-care deficit in patient living alone Current visit: Yes Status: Acute (2) Major neurocognitive disorder Problem details: Vascular etiology, moderate, with behavioral disturbance Other medical problems: Hypokalemia (K 3.5), present on admission. Elevated LFTs, present on admission. Elevated TSH (12.50), present on admission. Hypertension. COPD. Hyperlipidemia. Osteopenia. Diabetes Mellitus, type 2. Carotid stenosis. Senile tremor. Current visit: Yes Status: Acute (3) Tobacco use disorder Current visit: Yes Status: Acute Hospital Course Summary Disclaimer: The visit summary below is not to be considered part of the above Progress Note. Hospital Course: Plan - 12/31/17: Agree with admission to [facility] unit for psychiatric evaluation and cares per Dr. Higuera. Patient is a high elopement risk - monitor closely. Provide safe and supportive environment. Labs in ED revealed hypokalemia (K 3.5) and hyperglycemia (Glu 218). Will give KCl 20 mEq po x 1 dose now. Elevated LFTs - present on admission. No history of ETOH abuse. Will continue to monitor. Hold home lipitor. Monitor BGMs closely and resume home metformin XR 500mg which was started by PCP on 12/30/10. Recent A1c elevated at 7.2 though patient admits to medication noncompliance. Carb controlled diet. Hypertension - continue home Norvasc 10mg daily, Benazepril 40mg daily and metoprolol XL 50mg daily. Benazepril was recently increased to 40mg daily by PCP on 12/30/17. Monitor closely for signs of hypotension. Elevated TSH (12.50) - no known history of hypothyroidism. Will check free T3 and T4. Initiate Synthroid 25 mcg daily and recommend rechecking in 4-6 weeks. Continue home inhalers. DuoNeb Q6H PRN dyspnea. Oxygen as needed to maintain SAO2 >90%. No current oxygen use or home oxygen. Offered nicotine patch for tobacco dependence and patient refused. Will recheck labs on 01/02/18 to monitor blood counts, electrolytes and renal function. Upon discharge, patient's care will be returned to her PCP, Dr. Vang. On 01/01, decreased Aricept to 5mg PO daily after discussion with family. Ordered LEYDI on 01/02; will await results and continue to observe behavior. 01/03/18 Psych- Continue current care. Consider decreasing Lexapro to 20mg
[2018-01-03] MEDS: DONEPEZIL 5 MG TABLET PO SCH (20:23)
[2018-01-04] MEDS ORDERED: ALENDRONATE 70 MG TABLET PO SCH (06:00)
[2018-01-04] MEDS: LEVOTHYROXINE 25 MCG TABLET PO SCH (06:56)
[2018-01-04] MEDS: CALCIUM CARBONATE 600 MG TABLET PO SCH (08:15)
[2018-01-04] MEDS: FENOFIBRATE 160 MG TABLET PO SCH (08:16)
[2018-01-04] MEDS: ASPIRIN *EC* 81 MG TABLET PO SCH (08:16)
[2018-01-04] MEDS: AMLODIPINE 10 MG TABLET PO SCH (08:16)
[2018-01-04] MEDS: BENAZEPRIL 40 MG TABLET PO SCH (08:16)
[2018-01-04] MEDS: ESCITALOPRAM 20 MG TABLET PO SCH (08:16)
[2018-01-04] MEDS: NON-FORMULARY MEDICATION 1 EACH EACH (Glycopyrrolate/Formoterol Fum [Bevespi Aerosphere In PO SCH (08:17)
[2018-01-04] MEDS: MULTI-VITAMIN PLAIN TABLET PO SCH (08:17)
[2018-01-04] MEDS ORDERED: ALBUTEROL/IPRATROPIUM 2.5mg-0.5mg/3ml NEB AEROSOL PRN (10:49)
--- NOTE | 2018-01-04 11:50 | Neuropsych Progress Note ---
[facility] Subjective Date: 01/04/18 - Sujective/Severity of Illness Medications: Acetaminophen (Tylenol) 500 mg PO DAILY PRN PRN Reason: Pain Albuterol Sulfate (Proventil Neb (0.083%)) 2.5 mg AEROSOL Q4H PRN PRN Reason: Shortness of air Albuterol/Ipratropium (Duoneb) 3 ml AEROSOL RTQID PRN Albuterol/Ipratropium (Duoneb) 3 ml AEROSOL RTQID PRN Alendronate Sodium (Fosamax) 70 mg PO Leonardo@0600 [facility] Last Admin: 01/04/18 05:52 Dose: 70 mg Amlodipine Besylate (Norvasc) 10 mg PO DAILY [facility] Last Admin: 01/04/18 08:16 Dose: 10 mg Aspirin (Ecotrin) 81 mg PO DAILY [facility] Last Admin: 01/04/18 08:16 Dose: 81 mg Benazepril HCl (Lotensin) 40 mg PO DAILY [facility] Last Admin: 01/04/18 08:16 Dose: 40 mg Calcium Carbonate (Caltrate) 600 mg PO DAILY [facility] Last Admin: 01/04/18 08:15 Dose: 600 mg Cholecalciferol (Vit. D-3) 1,000 unit PO DAILY [facility] Last Admin: 01/04/18 08:16 Dose: 1,000 unit Donepezil HCl (Aricept) 5 mg PO HS [facility] Last Admin: 01/03/18 20:23 Dose: 5 mg Escitalopram Oxalate (Lexapro) 40 mg PO DAILY [facility] Last Admin: 01/04/18 08:16 Dose: 40 mg Fenofibrate (Lofibra) 160 mg PO WB [facility] Last Admin: 01/04/18 08:16 Dose: 160 mg Haloperidol (Haldol) 0.5 mg PO Q6H PRN PRN Reason: Extreme agitation Haloperidol Lactate (Haldol) 0.5 mg IM Q6H PRN PRN Reason: Extreme agitation Levothyroxine Sodium (Synthroid) 25 mcg PO ACB [facility] Last Admin: 01/04/18 06:56 Dose: 25 mcg Lorazepam (Ativan Inj) 0.5 mg IM Q6H PRN PRN Reason: Extreme agitation Lorazepam (Ativan) 0.5 mg PO Q6H PRN PRN Reason: Extreme agitation Lorazepam (Ativan Intensol) 0.5 mg PO Q6H PRN Last Admin: 12/31/17 14:40 Dose: 0.5 mg Metformin HCl (Glucophage Xr) 500 mg PO WB [facility] Last Admin: 01/04/18 08:16 Dose: 500 mg Metoprolol Succinate (Toprol Xl) 50 mg PO DAILY [facility] Last Admin: 01/04/18 08:17 Dose: 50 mg Multivitamins (Theragran) 1 tab PO DAILY [facility] Last Admin: 01/04/18 08:17 Dose: 1 tab Subjective: Pt seen and chart examined. Nursing reports pt has very poor short term memory but has been pleasant and cooperative. Sleeping and eating well. On face to face the pt states she is doing well. Mood stable. Denies S/I. Denies anxiety. Tolerating meds. Requesting to go home. No concerns Start Time: 11:30 Stop Time: 11:45 Mental Status Exam Vitals: Last Vital Signs Temp 97.6 F 01/04/18 07:28 Pulse 58 L 01/04/18 07:28 Resp 16 01/04/18 07:28 BP 149/68 H 01/04/18 07:28 Pulse Ox 96 01/04/18 07:28 Height: 1.63 m Weight: 60.7 kg - Mental Status Exam Muscle Strength/Tone: Normal Dressing: Casual Grooming: Fair Attitude: Cooperative Motor Activity: Normal Eye Contact: Good Speech: Normal Volume: Normal Rhythm: Appropriate Rhythm Orientation: Disoriented to place, Oriented to person, Oriented to time Mood: Neutral (restricted affect) Rate of Thoughts: Delayed Thought Organization: Organized, [place], Confused (at times) Associations: Intact Abstract Reasoning: Poor abstract reasoning Thought Content: Ruminations (about hospitalization; normal otherwise) Perception/Psychotic: Perception Normal Language: Naming Intact Fund of Knowledge: Poor fund of knowledge Memory: Poor-recent Suicidal Ideation: Denies Homicidal Ideation: Denies Insight: Impaired Judgement: Impaired Impulse Control: Fair - Laboratory Result Diagrams: 12/31/17 11:48 01/03/18 06:57 Assessment and Plan (1) Self-care deficit in patient living alone Current visit: Yes Status: Acute (2) Major neurocognitive disorder Problem details: Vascular etiology, moderate, with behavioral disturbance Other medical problems: Hypokalemia (K 3.5), present on admission. Elevated LFTs, present on admission. Elevated TSH (12.50), present on admission. Hypertension. COPD. Hyperlipidemia. Osteopenia. Diabetes Mellitus, type 2. Carotid stenosis. Senile tremor. Current visit: Yes Status: Acute (3) Tobacco use disorder Current visit: Yes Status: Acute Hospital Course Summary Disclaimer: The visit summary below is not to be considered part of the above Progress Note. Hospital Course: Plan - 12/31/17: Agree with admission to [facility] for psychiatric evaluation and cares per Dr. Higuera. Patient is a high elopement risk - monitor closely. Provide safe and supportive environment. Labs in ED revealed hypokalemia (K 3.5) and hyperglycemia (Glu 218). Will give KCl 20 mEq po x 1 dose now. Elevated LFTs - present on admission. No history of ETOH abuse. Will continue to monitor. Hold home lipitor. Monitor BGMs closely and resume home metformin XR 500mg which was started by PCP on 12/30/10. Recent A1c elevated at 7.2 though patient admits to medication noncompliance. Carb controlled diet. Hypertension - continue home Norvasc 10mg daily, Benazepril 40mg daily and metoprolol XL 50mg daily. Benazepril was recently increased to 40mg daily by PCP on 12/30/17. Monitor closely for signs of hypotension. Elevated TSH (12.50) - no known history of hypothyroidism. Will check free T3 and T4. Initiate Synthroid 25 mcg daily and recommend rechecking in 4-6 weeks. Continue home inhalers. DuoNeb Q6H PRN dyspnea. Oxygen as needed to maintain SAO2 >90%. No current oxygen use or home oxygen. Offered nicotine patch for tobacco dependence and patient refused. Will recheck labs on 01/02/18 to monitor blood counts, electrolytes and renal function. Upon discharge, patient's care will be returned to her PCP, Dr. Vang. On 01/01, decreased Aricept to 5mg PO daily after discussion with family. Ordered LEYDI on 01/02; will await results and continue to observe behavior. 01/03/18 Psych- Continue current care. Consider decreasing Lexapro to 20mg 01/04/18 Psych- Pt stable. Awaiting LEYDI results. Discussed with pt and sister that Lexapro is twice the FDA approved dose. Pt states she has been on it for two years and has not had any problems and would like to continue on current dose
--- NOTE | 2018-01-04 16:24 | Progress Note ---
Progress Note: Mrs. Miramontes was seen briefly in the day room. She jokingly reported "I'm not a patient"; she reported no difficulty breathing or ambulating. 97.2, 114/71, 97% room air NAD, alert, cooperative, fluent speech Respirations nonlabored Medically doing well, Bevespi inhaler not available at the hospital and pt without resp sx; RT recommended substituting DuoNeb prn which has been ordered.
[2018-01-04] MEDS: DONEPEZIL 5 MG TABLET PO SCH (20:14)
[2018-01-05] MEDS: LEVOTHYROXINE 25 MCG TABLET PO SCH (06:49)
[2018-01-05] MEDS: FENOFIBRATE 160 MG TABLET PO SCH (08:07)
[2018-01-05] MEDS: AMLODIPINE 10 MG TABLET PO SCH (08:08)
[2018-01-05] MEDS: ASPIRIN *EC* 81 MG TABLET PO SCH (08:08)
[2018-01-05] MEDS: ESCITALOPRAM 20 MG TABLET PO SCH (08:11)
[2018-01-05] MEDS: BENAZEPRIL 40 MG TABLET PO SCH (08:11)
[2018-01-05] MEDS: CALCIUM CARBONATE 600 MG TABLET PO SCH (08:11)
[2018-01-05] MEDS: MULTI-VITAMIN PLAIN TABLET PO SCH (08:12)
--- NOTE | 2018-01-05 16:07 | Neuropsych Progress Note ---
[facility] Subjective Date: 01/06/18 - Sujective/Severity of Illness Medications: Acetaminophen (Tylenol) 500 mg PO DAILY PRN PRN Reason: Pain Albuterol Sulfate (Proventil Neb (0.083%)) 2.5 mg AEROSOL Q4H PRN PRN Reason: Shortness of air Albuterol/Ipratropium (Duoneb) 3 ml AEROSOL RTQID PRN Albuterol/Ipratropium (Duoneb) 3 ml AEROSOL RTQID PRN Alendronate Sodium (Fosamax) 70 mg PO Leonardo@0600 [facility] Last Admin: 01/04/18 05:52 Dose: 70 mg Amlodipine Besylate (Norvasc) 10 mg PO DAILY [facility] Last Admin: 01/05/18 08:08 Dose: 10 mg Aspirin (Ecotrin) 81 mg PO DAILY [facility] Last Admin: 01/05/18 08:08 Dose: 81 mg Benazepril HCl (Lotensin) 40 mg PO DAILY [facility] Last Admin: 01/05/18 08:11 Dose: 40 mg Calcium Carbonate (Caltrate) 600 mg PO DAILY [facility] Last Admin: 01/05/18 08:11 Dose: 600 mg Cholecalciferol (Vit. D-3) 1,000 unit PO DAILY [facility] Last Admin: 01/05/18 08:11 Dose: 1,000 unit Donepezil HCl (Aricept) 5 mg PO HS [facility] Last Admin: 01/04/18 20:14 Dose: 5 mg Escitalopram Oxalate (Lexapro) 40 mg PO DAILY [facility] Last Admin: 01/05/18 08:11 Dose: 40 mg Fenofibrate (Lofibra) 160 mg PO WB [facility] Last Admin: 01/05/18 08:07 Dose: 160 mg Haloperidol (Haldol) 0.5 mg PO Q6H PRN PRN Reason: Extreme agitation Haloperidol Lactate (Haldol) 0.5 mg IM Q6H PRN PRN Reason: Extreme agitation Levothyroxine Sodium (Synthroid) 25 mcg PO ACB [facility] Last Admin: 01/05/18 06:49 Dose: 25 mcg Lorazepam (Ativan Inj) 0.5 mg IM Q6H PRN PRN Reason: Extreme agitation Lorazepam (Ativan) 0.5 mg PO Q6H PRN PRN Reason: Extreme agitation Lorazepam (Ativan Intensol) 0.5 mg PO Q6H PRN Last Admin: 12/31/17 14:40 Dose: 0.5 mg Metformin HCl (Glucophage Xr) 500 mg PO WB [facility] Last Admin: 01/05/18 08:08 Dose: 500 mg Metoprolol Succinate (Toprol Xl) 50 mg PO DAILY [facility] Last Admin: 01/05/18 08:12 Dose: 50 mg Multivitamins (Theragran) 1 tab PO DAILY [facility] Last Admin: 01/05/18 08:12 Dose: 1 tab Subjective: Patient seen and chart reviewed. Case discussed with treatment team. On interview, patient is in her room with her grandson and her dog visiting. She really enjoys them. Family asked that I discuss issue of placement with them present as it may help patient deal with it better. LEYDI was completed on Friday and recommended home with assistance but this was not felt to be accurate /safe due to patient's history of smoking in the house and having cigarette hyatt on things. DPOA confirmed decision to place patient. During conversation, patient remained calm but continued to state that she did not feel it was necessary and she wanted to go home independently. Patient denies any SI, HI or AVH. Patient denies any adverse side effects related to psychotropic medications. Nursing staff report patient continues to have poor insight and became irritable at the bed alarm, but otherwise no significant behavioral problems on the unit. Patient has been adherent with medications. Patient slept 6.75 hours overnight. VSS. Patient is eating well. Psychotropic PRNs required in the past 24 hours: none. Start Time: 13:00 Stop Time: 13:40 Care: >50% of this visit spent in counseling/coordination care. Mental Status Exam Vitals: Last Vital Signs Temp 97.5 F 01/05/18 08:00 Pulse 58 L 01/05/18 08:00 Resp 16 01/05/18 08:00 BP 143/63 H 01/05/18 08:00 Pulse Ox 96 01/05/18 08:00 Height: 1.63 m Weight: 60.7 kg - Mental Status Exam Muscle Strength/Tone: Normal Dressing: Casual Grooming: Fair Attitude: Cooperative Motor Activity: Normal Eye Contact: Good Speech: Normal Volume: Normal Rhythm: Appropriate Rhythm Orientation: Disoriented to place, Oriented to person, Oriented to time Mood: Neutral (restricted affect) Rate of Thoughts: Delayed Thought Organization: Organized, [place], Confused (at times) Associations: Intact Abstract Reasoning: Poor abstract reasoning Thought Content: Ruminations (about hospitalization; normal otherwise) Perception/Psychotic: Perception Normal Language: Naming Intact Fund of Knowledge: Poor fund of knowledge Memory: Poor-recent Suicidal Ideation: Denies Homicidal Ideation: Denies Insight: Impaired Judgement: Impaired Impulse Control: Fair - Laboratory Result Diagrams: 12/31/17 11:48 01/03/18 06:57 Assessment and Plan (1) Major neurocognitive disorder Problem details: Vascular etiology, moderate, with behavioral disturbance Other medical problems: Hypokalemia (K 3.5), present on admission. Elevated LFTs, present on admission. Elevated TSH (12.50), present on admission. Hypertension. COPD. Hyperlipidemia. Osteopenia. Diabetes Mellitus, type 2. Carotid stenosis. Senile tremor. Current visit: Yes Status: Acute (2) Self-care deficit in patient living alone Current visit: Yes Status: Acute (3) Tobacco use disorder Current visit: Yes Status: Acute No medication changes for today. Discussed plan for placement; will let patient process and monitor mood/behavior to see if further med changes are warranted. Hospital Course Summary Disclaimer: The visit summary below is not to be considered part of the above Progress Note. Hospital Course: Plan - 12/31/17: [facility] with [facility] for [facility] evaluation and cares per Dr. Higuera. Patient is a high elopement risk - monitor closely. Provide safe and supportive environment. Labs in ED revealed hypokalemia (K 3.5) and hyperglycemia (Glu 218). Will give KCl 20 mEq po x 1 dose now. Elevated LFTs - present on admission. No history of ETOH abuse. Will continue to monitor. Hold home lipitor. Monitor BGMs closely and resume home metformin XR 500mg which was started by PCP on 12/30/10. Recent A1c elevated at 7.2 though patient admits to medication noncompliance. Carb controlled diet. Hypertension - continue home Norvasc 10mg daily, Benazepril 40mg daily and metoprolol XL 50mg daily. Benazepril was recently increased to 40mg daily by PCP on 12/30/17. Monitor closely for signs of hypotension. Elevated TSH (12.50) - no known history of hypothyroidism. Will check free T3 and T4. Initiate Synthroid 25 mcg daily and recommend rechecking in 4-6 weeks. Continue home inhalers. DuoNeb Q6H PRN dyspnea. Oxygen as needed to maintain SAO2 >90%. No current oxygen use or home oxygen. Offered nicotine patch for tobacco dependence and patient refused. Will recheck labs on 01/02/18 to monitor blood counts, electrolytes and renal function. Upon discharge, patient's care will be returned to her PCP, Dr. Vang. On 01/01, decreased Aricept to 5mg PO daily after discussion with family. Ordered LEYDI on 01/02; will await results and continue to observe behavior. 01/03/18 Psych- Continue current care. Consider decreasing Lexapro to 20mg 01/04/18 Psych- Pt stable. Awaiting LEYDI results. Discussed with pt and sister that Lexapro is twice the FDA approved dose. Pt states she has been on it for two years and has not had any problems and would like to continue on current dose. 01/05/18 Psych: No medication changes for today. Discussed plan for placement; will let patient process and monitor mood/behavior to see if further med changes are warranted.
[2018-01-05] MEDS: DONEPEZIL 5 MG TABLET PO SCH (20:09)
[2018-01-06] MEDS: LEVOTHYROXINE 25 MCG TABLET PO SCH (07:34)
[2018-01-06] MEDS: ASPIRIN *EC* 81 MG TABLET PO SCH (08:07)
[2018-01-06] MEDS: AMLODIPINE 10 MG TABLET PO SCH (08:07)
[2018-01-06] MEDS: FENOFIBRATE 160 MG TABLET PO SCH (08:07)
[2018-01-06] MEDS: MULTI-VITAMIN PLAIN TABLET PO SCH (08:07)
[2018-01-06] MEDS: BENAZEPRIL 40 MG TABLET PO SCH (08:07)
[2018-01-06] MEDS: CALCIUM CARBONATE 600 MG TABLET PO SCH (08:07)
[2018-01-06] MEDS: ESCITALOPRAM 20 MG TABLET PO SCH (08:07)
--- NOTE | 2018-01-06 08:44 | Progress Note ---
- Date 01/06/18 Subjective: Kayleigh was finishing up breakfast. She was smiling and in good spirits and denied any complaints whatsoever. She was engaged in conversation with 2 staff members who were at the table with her. Staff deny any physical concerns. She's been eating well. Objective Vital signs: Temperature 97.0 F 01/06/18 08:00 Pulse Rate 62 01/06/18 08:00 Respiratory Rate 18 01/06/18 08:00 Blood Pressure 130/62 01/06/18 08:00 Pulse Oximetry 97 01/06/18 08:00 Height/Weight/BMI: Height 1.63 m Weight 60.7 kg Body Mass Index 22.9 - Constitutional Present: no acute distress, well nourished, well developed - Routine HEENT Exam Head: Present: normocephalic Eye: Present: PERRL. Absent: conjunctival icterus, scleral injection - Routine Respiratory Exam Present: CTA bilaterally - Routine Cardiovascular Exam Present: RRR, S1, S2 - Routine Abdominal Exam Present: soft, normoactive bowel sounds, non distended, non tender - Routine Extremities Exam Present: no edema, pulses intact, normal capillary refill. Absent: calf tenderness - Routine Skin Exam Present: intact, dry, warm - Routine Neurological Exam Present: alert, moving all extremities, vision grossly intact, hearing grossly intact, normal speech - Routine Psychiatric Exam Present: normal affect, normal thought process, cooperative Results - Labs CBC & Chem 7: 12/31/17 11:48 01/03/18 06:57 Assessment and Plan (1) Dementia with behavioral disturbance Current visit: Yes Status: Acute (2) Self-care deficit in patient living alone Current visit: Yes Status: Acute Assessment and Plan: Assessment: Dementia with behavioral disturbance. Self care deficits. Hypokalemia (K 3.5), present on admission. Elevated LFTs, present on admission. Elevated TSH (12.50), present on admission. Medication noncompliance. Hypertension. COPD. Hyperlipidemia. Osteopenia. Diabetes Mellitus, type 2. Carotid stenosis. Depression. Senile tremor. Claustrophobia. Tobacco dependence. Plan - 01/06/18: Hypokalemia has resolved. Free T4 0.83 (Normal), Free T3 pending. Synthroid 0.25 mg started on admission. Hgb A1c 6.7%; improved from 7.2% prior to admission. Cont Metformin (initiated on 12/30/17 by PCP) and CC diet. BP overall stable with current meds. Norvasc 10mg daily, Benazepril 40mg daily and metoprolol XL 50mg daily. Hyperlipidemia/hypertriglyceridemia/high LDL - continue fenofibrate and resume atorvastatin 40 mg HS. Continue psych care per attending. Discussed with nursing: no current medical concerns. - Physician Narrative Physician: Grecia Duggan MD Narrative: Date: 01/06/18 Time:1824 the patient was interviewed and examined by me. She is resting comfortably in bed. She just reports "I'm still here". Patient denies any complaints at all. PE: Gen: alert and oriented. NAD Skin: warm and dry HEENT: NC/AT PERRL, EOMI, Sclera, lids and conjunctiva wnl. MMM. OP clear. Neck: No JVD, Carotids 2+ without bruits Lungs: clear. No rales, rhonchi or wheezes CV: regular. No murmur, rub or gallop Abd: soft. +BS. NT/ND MS: No edema. Good strength and ROM Neuro: No focal deficits Psy: Appropriate mood and affect Assessment: Dementia with behavioral disturbance. Self care deficits. Hypokalemia (K 3.5), present on admission. Elevated LFTs, present on admission. Elevated TSH (12.50), present on admission. Medication noncompliance. Hypertension. COPD. Hyperlipidemia. Osteopenia. Diabetes Mellitus, type 2. Carotid stenosis. Depression. Senile tremor. Claustrophobia. Tobacco dependence. Plan - 01/06/18: Hypokalemia has resolved. Free T4 0.83 (Normal), Free T3 pending. Synthroid 0.25 mg started on admission. Hgb A1c 6.7%; improved from 7.2% prior to admission. Cont Metformin (initiated on 12/30/17 by PCP) and CC diet. BP overall stable with current meds. Norvasc 10mg daily, Benazepril 40mg daily and metoprolol XL 50mg daily. Hyperlipidemia/hypertriglyceridemia/high LDL - continue fenofibrate and resume atorvastatin 40 mg HS. Continue psych care per attending. Discussed with nursing: no current medical concerns. I have reviewed her notes, labs. I agree with the above assessment and plan as documented. I have performed by on physical exam and interviewed the patient on my own. Hospital Course Summary Disclaimer: The visit summary below is not to be considered part of the above Progress Note. Hospital Course: 12/31/17 Hosp. Patient is a high elopement risk - monitor closely. Provide safe and supportive environment. Labs in ED revealed hypokalemia (K 3.5) and hyperglycemia (Glu 218). Will give KCl 20 mEq po x 1 dose now. Elevated LFTs - present on admission. No history of ETOH abuse. Will continue to monitor. Hold home lipitor. Monitor BGMs closely and resume home metformin XR 500mg which was started by PCP on 12/30/10. Recent A1c elevated at 7.2 though patient admits to medication noncompliance. Carb controlled diet. Hypertension - continue home Norvasc 10mg daily, Benazepril 40mg daily and metoprolol XL 50mg daily. Benazepril was recently increased to 40mg daily by PCP on 12/30/17. Monitor closely for signs of hypotension. Elevated TSH (12.50) - no known history of hypothyroidism. Will check free T3 and T4. Initiate Synthroid 25 mcg daily and recheck in 4-6 weeks. Continue home inhalers. DuoNeb Q6H PRN dyspnea. Oxygen as needed to maintain SAO2 >90%. No current oxygen use or home oxygen. Offered nicotine patch for tobacco dependence and patient refused. Upon discharge, patient's care will be returned to her PCP, Dr. Vang. On 01/01, decreased Aricept to 5mg PO daily after discussion with family. Ordered LEYDI on 01/02; will await results and continue to observe behavior. 01/03/18 Psych- Continue current care. Consider decreasing Lexapro to 20mg 01/04/18 Psych- Pt stable. Awaiting LEYDI results. Discussed with pt and sister that Lexapro is twice the FDA approved dose. Pt states she has been on it for two years and has not had any problems and would like to continue on current dose 01/06/18 Hosp. Hypokalemia has resolved. Free T4 0.83 (Normal), Free T3 pending. Synthroid 0.25 mg started on admission. Hgb A1c 6.7%; improved from 7.2% prior to admission. Cont Metformin (initiated on 12/30/17 by PCP) and CC diet. BP overall stable with current meds. Norvasc 10mg daily, Benazepril 40mg daily and metoprolol XL 50mg daily. Hyperlipidemia/hypertriglyceridemia/high LDL - continue fenofibrate and resume atorvastatin 40 mg HS.
--- NOTE | 2018-01-06 09:55 | Neuropsych Progress Note ---
[facility] Subjective Date: 01/06/18 - Sujective/Severity of Illness Medications: Acetaminophen (Tylenol) 500 mg PO DAILY PRN PRN Reason: Pain Albuterol Sulfate (Proventil Neb (0.083%)) 2.5 mg AEROSOL Q4H PRN PRN Reason: Shortness of air Albuterol/Ipratropium (Duoneb) 3 ml AEROSOL RTQID PRN Albuterol/Ipratropium (Duoneb) 3 ml AEROSOL RTQID PRN Alendronate Sodium (Fosamax) 70 mg PO Leonardo@0600 [facility] Last Admin: 01/04/18 05:52 Dose: 70 mg Amlodipine Besylate (Norvasc) 10 mg PO DAILY [facility] Last Admin: 01/06/18 08:07 Dose: 10 mg Aspirin (Ecotrin) 81 mg PO DAILY [facility] Last Admin: 01/06/18 08:07 Dose: 81 mg Atorvastatin Calcium (Lipitor) 40 mg PO [facility] Benazepril HCl (Lotensin) 40 mg PO DAILY [facility] Last Admin: 01/06/18 08:07 Dose: 40 mg Calcium Carbonate (Caltrate) 600 mg PO DAILY [facility] Last Admin: 01/06/18 08:07 Dose: 600 mg Cholecalciferol (Vit. D-3) 1,000 unit PO DAILY [facility] Last Admin: 01/06/18 08:07 Dose: 1,000 unit Donepezil HCl (Aricept) 5 mg PO HS [facility] Last Admin: 01/05/18 20:09 Dose: 5 mg Escitalopram Oxalate (Lexapro) 40 mg PO DAILY [facility] Last Admin: 01/06/18 08:07 Dose: 40 mg Fenofibrate (Lofibra) 160 mg PO WB [facility] Last Admin: 01/06/18 08:07 Dose: 160 mg Haloperidol (Haldol) 0.5 mg PO Q6H PRN PRN Reason: Extreme agitation Haloperidol Lactate (Haldol) 0.5 mg IM Q6H PRN PRN Reason: Extreme agitation Levothyroxine Sodium (Synthroid) 25 mcg PO ACB [facility] Last Admin: 01/06/18 07:34 Dose: 25 mcg Lorazepam (Ativan Inj) 0.5 mg IM Q6H PRN PRN Reason: Extreme agitation Lorazepam (Ativan) 0.5 mg PO Q6H PRN PRN Reason: Extreme agitation Lorazepam (Ativan Intensol) 0.5 mg PO Q6H PRN Last Admin: 12/31/17 14:40 Dose: 0.5 mg Metformin HCl (Glucophage Xr) 500 mg PO WB [facility] Last Admin: 01/06/18 08:06 Dose: 500 mg Metoprolol Succinate (Toprol Xl) 50 mg PO DAILY [facility] Last Admin: 01/06/18 08:07 Dose: 50 mg Multivitamins (Theragran) 1 tab PO DAILY [facility] Last Admin: 01/06/18 08:07 Dose: 1 tab Subjective: Patient seen and chart reviewed. Case discussed with treatment team. On interview, patient is in her room resting and says she's bored, that she just wants to get out of the hospital. Daughter reported that conversation about placement went well last night and patient is more accepting. Today she tells me she is not happy about it but will accept it without becoming aggressive. Patient states she will not harm herself, she has threatened that before in anger but hasn't really meant it. She states it would devastate her grandson who means the world to her and she needs to be around for her dog. Patient denies any SI, HI or AVH. Patient denies any adverse side effects related to psychotropic medications. Nursing staff report patient tends to isolate and is forgetful, but otherwise no significant behavioral problems on the unit. Patient has been adherent with medications. Patient slept 8 hours overnight. VSS. Patient is eating well. Psychotropic PRNs required in the past 24 hours: none. Start Time: 11:20 Stop Time: 11:40 Mental Status Exam Vitals: Last Vital Signs Temp 97.0 F 01/06/18 08:00 Pulse 62 01/06/18 08:00 Resp 18 01/06/18 08:00 BP 130/62 01/06/18 08:00 Pulse Ox 97 01/06/18 08:00 Height: 1.63 m Weight: 60.7 kg - Mental Status Exam Muscle Strength/Tone: Normal Dressing: Casual Grooming: Fair Attitude: Cooperative Motor Activity: Normal Eye Contact: Good Speech: Normal Volume: Normal Rhythm: Appropriate Rhythm Orientation: Disoriented to place, Oriented to person, Oriented to time Mood: Neutral Affect: Relaxed Rate of Thoughts: Delayed Thought Organization: Organized, [place], Confused (at times) Associations: Intact Abstract Reasoning: Poor abstract reasoning Thought Content: Normal Perception/Psychotic: Perception Normal Language: Naming Intact Fund of Knowledge: Poor fund of knowledge Memory: Poor-recent Suicidal Ideation: Denies Homicidal Ideation: Denies Insight: Impaired Judgement: Impaired Impulse Control: Fair - Laboratory Result Diagrams: 12/31/17 11:48 01/03/18 06:57 Assessment and Plan (1) Major neurocognitive disorder Problem details: Vascular etiology, moderate, with behavioral disturbance Other medical problems: Hypokalemia (K 3.5), present on admission. Elevated LFTs, present on admission. Elevated TSH (12.50), present on admission. Hypertension. COPD. Hyperlipidemia. Osteopenia. Diabetes Mellitus, type 2. Carotid stenosis. Senile tremor. Current visit: Yes Status: Acute (2) Self-care deficit in patient living alone Current visit: Yes Status: Acute (3) Tobacco use disorder Current visit: Yes Status: Acute Will discontinue Aricept per patient/DPOA's wishes. Plan for discharge to LTC facility tomorrow. Hospital Course Summary Disclaimer: The visit summary below is not to be considered part of the above Progress Note. Hospital Course: Plan - 12/31/17: Agree with [facility] for psychiatric evaluation and cares per Dr. Higuera. Patient is a high elopement risk - monitor closely. Provide safe and supportive environment. Labs in ED revealed hypokalemia (K 3.5) and hyperglycemia (Glu 218). Will give KCl 20 mEq po x 1 dose now. Elevated LFTs - present on admission. No history of ETOH abuse. Will continue to monitor. Hold home lipitor. Monitor BGMs closely and resume home metformin XR 500mg which was started by PCP on 12/30/10. Recent A1c elevated at 7.2 though patient admits to medication noncompliance. Carb controlled diet. Hypertension - continue home Norvasc 10mg daily, Benazepril 40mg daily and metoprolol XL 50mg daily. Benazepril was recently increased to 40mg daily by PCP on 12/30/17. Monitor closely for signs of hypotension. Elevated TSH (12.50) - no known history of hypothyroidism. Will check free T3 and T4. Initiate Synthroid 25 mcg daily and recommend rechecking in 4-6 weeks. Continue home inhalers. DuoNeb Q6H PRN dyspnea. Oxygen as needed to maintain SAO2 >90%. No current oxygen use or home oxygen. Offered nicotine patch for tobacco dependence and patient refused. Will recheck labs on 01/02/18 to monitor blood counts, electrolytes and renal function. Upon discharge, patient's care will be returned to her PCP, Dr. Vang. On 01/01, decreased Aricept to 5mg PO daily after discussion with family. Ordered LEYDI on 01/02; will await results and continue to observe behavior. 01/03/18 Psych- Continue current care. Consider decreasing Lexapro to 20mg 01/04/18 Psych- Pt stable. Awaiting LEYDI results. Discussed with pt and sister that Lexapro is twice the FDA approved dose. Pt states she has been on it for two years and has not had any problems and would like to continue on current dose. 01/05/18 Psych: No medication changes for today. Discussed plan for placement; will let patient process and monitor mood/behavior to see if further med changes are warranted. 01/06/18 Psych: Will discontinue Aricept per patient/DPOA's wishes. Plan for discharge to LTC facility tomorrow.
--- NOTE | 2018-01-06 15:23 | Extended Care Facility Orders ---
Admission Orders Admit to:: [facility] Allergies/Adverse Reactions: Allergies No Known Allergies Allergy (Verified 12/31/17 11:39) Admitting Diagnosis: Dementia with behavioral disturbance Admitting Physician: Taylor Higuera MD Attending Physician: Taylor Higuera MD Code Status: Do Not Resuscitate Anticiapted Length of Stay: greater than 30 days Rehab Potential: fair Rehab Prognosis: fair Diet: 12/31/17 Dinner Diabetic Diet [Consistent Carbohydrate Diet] [DIET] Calorie Level: 1999 May use Facility Protocol or Standing Orders: Yes May have flu vaccine: Yes Evaluations/Treatment: Psychiatric Usp Certification: I certify that SNF services are required to be given on an Inpatient basis because of the patients need for assisted care on a continuing basis for the condition(s) for which he/she received inpatient hospital services prior to his/her transfer to the SNF. SNF inpatient care is necessary for the following reasons Indication for Usp: Not Applicable - Additional Information In Event of Arrest: Do Not Start CPR Resident is Aware of Diagnosis: Yes Referrals: Enedina Couch MD [Physician] - (Dr. Jem Couch will see patient on rounds at the facility. DPOA/Family declines Mental Health follow-up.)
[2018-01-06 19:30] VITALS: RESP 16
[2018-01-06] MEDS: DONEPEZIL 5 MG TABLET PO SCH (20:23)
[2018-01-06] MEDS ORDERED: ATORVASTATIN 40 MG TABLET PO SCH (21:00)
[2018-01-07 07:51] VITALS: TEMP 97.4
[2018-01-07] MEDS: AMLODIPINE 10 MG TABLET PO SCH (08:02)
[2018-01-07] MEDS: ASPIRIN *EC* 81 MG TABLET PO SCH (08:02)
[2018-01-07] MEDS: ESCITALOPRAM 20 MG TABLET PO SCH (08:03)
[2018-01-07] MEDS: CALCIUM CARBONATE 600 MG TABLET PO SCH (08:03)
[2018-01-07] MEDS: MULTI-VITAMIN PLAIN TABLET PO SCH (08:03)
[2018-01-07] MEDS: FENOFIBRATE 160 MG TABLET PO SCH (08:03)
[2018-01-07] MEDS: BENAZEPRIL 40 MG TABLET PO SCH (08:03)
[2018-01-07] MEDS: LEVOTHYROXINE 25 MCG TABLET PO SCH (08:04)
[2018-01-07] MEDS ORDERED: ACETAMINOPHEN 325 MG TABLET PO PRN (14:31)
--- NOTE | 2018-01-07 15:08 | Neuropsych Progress Note ---
[facility] Subjective Date: 01/07/18 - Sujective/Severity of Illness Medications: Acetaminophen (Tylenol) 500 mg PO DAILY PRN PRN Reason: Pain Acetaminophen (Tylenol) 325 - 650 mg PO Q6H PRN PRN Reason: Discomfort Last Admin: 01/07/18 14:34 Dose: 650 mg Albuterol Sulfate (Proventil Neb (0.083%)) 2.5 mg AEROSOL Q4H PRN PRN Reason: Shortness of air Albuterol/Ipratropium (Duoneb) 3 ml AEROSOL RTQID PRN Albuterol/Ipratropium (Duoneb) 3 ml AEROSOL RTQID PRN Alendronate Sodium (Fosamax) 70 mg PO Leonardo@0600 [facility] Last Admin: 01/04/18 05:52 Dose: 70 mg Amlodipine Besylate (Norvasc) 10 mg PO DAILY [facility] Last Admin: 01/07/18 08:02 Dose: 10 mg Aspirin (Ecotrin) 81 mg PO DAILY [facility] Last Admin: 01/07/18 08:02 Dose: 81 mg Atorvastatin Calcium (Lipitor) 40 mg PO HS [facility] Last Admin: 01/06/18 20:23 Dose: 40 mg Benazepril HCl (Lotensin) 40 mg PO DAILY [facility] Last Admin: 01/07/18 08:03 Dose: 40 mg Calcium Carbonate (Caltrate) 600 mg PO DAILY [facility] Last Admin: 01/07/18 08:03 Dose: 600 mg Cholecalciferol (Vit. D-3) 1,000 unit PO DAILY [facility] Last Admin: 01/07/18 08:04 Dose: 1,000 unit Donepezil HCl (Aricept) 5 mg PO HS [facility] Last Admin: 01/06/18 20:23 Dose: 5 mg Escitalopram Oxalate (Lexapro) 40 mg PO DAILY [facility] Last Admin: 01/07/18 08:03 Dose: 40 mg Fenofibrate (Lofibra) 160 mg PO WB [facility] Last Admin: 01/07/18 08:03 Dose: 160 mg Haloperidol (Haldol) 0.5 mg PO Q6H PRN PRN Reason: Extreme agitation Haloperidol Lactate (Haldol) 0.5 mg IM Q6H PRN PRN Reason: Extreme agitation Levothyroxine Sodium (Synthroid) 25 mcg PO ACB [facility] Last Admin: 04/18/18 08:04 Dose: 25 mcg Lorazepam (Ativan Inj) 0.5 mg IM Q6H PRN PRN Reason: Extreme agitation Lorazepam (Ativan) 0.5 mg PO Q6H PRN PRN Reason: Extreme agitation Lorazepam (Ativan Intensol) 0.5 mg PO Q6H PRN Last Admin: 12/31/17 14:40 Dose: 0.5 mg Metformin HCl (Glucophage Xr) 500 mg PO WB [facility] Last Admin: 01/07/18 08:04 Dose: 500 mg Metoprolol Succinate (Toprol Xl) 50 mg PO DAILY [facility] Last Admin: 01/07/18 08:04 Dose: 50 mg Multivitamins (Theragran) 1 tab PO DAILY [facility] Last Admin: 01/07/18 08:03 Dose: 1 tab Subjective: Patient seen and chart reviewed. Case discussed with treatment team. On interview, patient is in her room and says she is dealing with transition well, she feels prepared to go to facility even though would prefer to go home. Patient denies any SI, HI or AVH. Patient denies any adverse side effects related to psychotropic medications. Nursing staff report patient tends to isolate and is forgetful, but otherwise no significant behavioral problems on the unit. Patient has been adherent with medications. Patient slept well overnight. VSS. Patient is eating well. Psychotropic PRNs required in the past 24 hours: none. Start Time: 11:20 Stop Time: 11:40 Mental Status Exam Vitals: Last Vital Signs Temp 97.4 F 01/07/18 07:51 Pulse 58 L 01/07/18 07:51 Resp 16 01/07/18 07:51 BP 124/59 01/07/18 07:51 Pulse Ox 95 01/07/18 07:51 Height: 1.63 m Weight: 60.7 kg - Mental Status Exam Muscle Strength/Tone: Normal Dressing: Casual Grooming: Fair Attitude: Cooperative Motor Activity: Normal Eye Contact: Good Speech: Normal Volume: Normal Rhythm: Appropriate Rhythm Orientation: Disoriented to place, Oriented to person, Oriented to time Mood: Neutral Affect: Relaxed Rate of Thoughts: Delayed Thought Organization: Organized, [place], Confused (at times) Associations: Intact Abstract Reasoning: Poor abstract reasoning Thought Content: Normal Perception/Psychotic: Perception Normal Language: Naming Intact Fund of Knowledge: Poor fund of knowledge Memory: Poor-recent Suicidal Ideation: Denies Homicidal Ideation: Denies Insight: Impaired Judgement: Impaired Impulse Control: Good - Laboratory Result Diagrams: 12/31/17 11:48 01/03/18 06:57 Assessment and Plan (1) Major neurocognitive disorder Problem details: Vascular etiology, moderate, with behavioral disturbance Other medical problems: Hypokalemia (K 3.5), present on admission. Elevated LFTs, present on admission. Elevated TSH (12.50), present on admission. Hypertension. COPD. Hyperlipidemia. Osteopenia. Diabetes Mellitus, type 2. Carotid stenosis. Senile tremor. Current visit: Yes Status: Acute (2) Self-care deficit in patient living alone Current visit: Yes Status: Acute (3) Tobacco use disorder Current visit: Yes Status: Acute Plan to discharge to [facility] memory care unit today. Discontinue Aricept on , tolerating well. Hospital Course Summary Disclaimer: The visit summary below is not to be considered part of the above Progress Note. Hospital Course: 12/31/17 Hosp. Patient is a high elopement risk - monitor closely. Provide safe and supportive environment. Labs in ED revealed hypokalemia (K 3.5) and hyperglycemia (Glu 218). Will give KCl 20 mEq po x 1 dose now. Elevated LFTs - present on admission. No history of ETOH abuse. Will continue to monitor. Hold home lipitor. Monitor BGMs closely and resume home metformin XR 500mg which was started by PCP on 12/30/10. Recent A1c elevated at 7.2 though patient admits to medication noncompliance. Carb controlled diet. Hypertension - continue home Norvasc 10mg daily, Benazepril 40mg daily and metoprolol XL 50mg daily. Benazepril was recently increased to 40mg daily by PCP on 12/30/17. Monitor closely for signs of hypotension. Elevated TSH (12.50) - no known history of hypothyroidism. Will check free T3 and T4. Initiate Synthroid 25 mcg daily and recheck in 4-6 weeks. Continue home inhalers. DuoNeb Q6H PRN dyspnea. Oxygen as needed to maintain SAO2 >90%. No current oxygen use or home oxygen. Offered nicotine patch for tobacco dependence and patient refused. Upon discharge, patient's care will be returned to her PCP, Dr. Vang. On 01/01, decreased Aricept to 5mg PO daily after discussion with family. Ordered LEYDI on 01/02; will await results and continue to observe behavior. 01/03/18 Psych- Continue current care. Consider decreasing Lexapro to 20mg 01/04/18 Psych- Pt stable. Awaiting LEYDI results. Discussed with pt and sister that Lexapro is twice the FDA approved dose. Pt states she has been on it for two years and has not had any problems and would like to continue on current dose 01/06/18 Hosp. Hypokalemia has resolved. Free T4 0.83 (Normal), Free T3 pending. Synthroid 0.25 mg started on admission. Hgb A1c 6.7%; improved from 7.2% prior to admission. Cont Metformin (initiated on 12/30/17 by PCP) and CC diet. BP overall stable with current meds. Norvasc 10mg daily, Benazepril 40mg daily and metoprolol XL 50mg daily. Hyperlipidemia/hypertriglyceridemia/high LDL - continue fenofibrate and resume atorvastatin 40 mg HS. 01/07/18 Psych: Plan to discharge to [facility] memory care unit today. Discontinue Aricept on 01/06, tolerating well.
[2018-01-07 16:28] VITALS: BP 114/56; PULSE 53; O2SAT 97
== END 2018-01-07 17:00 | DRG 884 ==
LOC: ED 11:14 → GEN 13:03
PROVIDERS: ADMIT Psychiatry & Neurology Psychiatry; ATTEND Psychiatry & Neurology Psychiatry